=== PATIENT | female | born 1940 | race Caucasian/White ===

== ENCOUNTER → 2017-04-14 | Outpatient (CLI) | payer MEDICARE, OTHER ==
--- NOTE | 2017-04-14 14:07 | REPMRS ---
Patient History The patient states she has not had a clinical breast exam in over a year. Patient had first child at age 33. Family history of breast cancer in sister at age 45. Digital Woman Screen Mammo: April 14, 2017 - Exam #: [id number] Bilateral MLO and CC view(s) were taken. CV view(s) were taken of the right breast. Technologist: Shena Mauricio, Technologist Prior study comparison: April 12, 2016, digital woman screen mammo performed at [facility] to [facility]. March 06, 2015, right breast digital mammo diagnostic unilateral, performed at [facility]. February 20, 2015, digital woman screen mammo performed at [facility]. FINDINGS: There are scattered fibroglandular densities. There has been no change in the appearance of the mammogram from the prior studies. There is a mild amount of scattered fibroglandular density which is fairly symmetric. There is no interval development of dominant mass, architectural distortion, or clustered microcalcification suggestive of malignancy. ASSESSMENT: BI-RADS/ACR category 1 mammogram. Negative. Recommendation Routine screening mammogram in 1 year (for women over age 40). This mammogram was interpreted with the aid of an FDA-approved computer-aided dectection system. Electronically Signed By: Jose Campos MD 04/14/17 [id number]
== END ==
LOC: M WHC 12:57
PROVIDERS: ATTEND Family Medicine
DX: Z12.31 Encounter for screening mammogram for malignant neoplasm of breast (principal)

== ENCOUNTER → 2017-04-18 | Outpatient (REF) | payer MEDICARE, OTHER ==
[2017-04-18 12:12] LABS: ALBUMIN 3.6 GM/DL (3.2-5.2); ALKALINE PHOSPHATASE 215 U/L (45-117); ALT/SGPT 60 U/L (12-78); ANION GAP 9 MEQ/L (8-16); AST/SGOT 38 U/L (15-37); BILIRUBIN,TOTAL 0.2 MG/DL (0.2-1.0); BLOOD UREA NITROGEN 28 MG/DL (7-18); CALCIUM LEVEL 9.1 MG/DL (8.8-10.2); CARBON DIOXIDE LEVEL 28 MEQ/L (21-32); CHLORIDE LEVEL 100 MEQ/L (98-107); CHOLESTEROL LEVEL 239 MG/DL (<200); CREATININE FOR GFR 0.85 MG/DL (0.55-1.02); GLOMERULAR FILTRATION RATE > 60.0 (>39); GLUCOSE, FASTING 139 MG/DL (83-110); POTASSIUM SERUM 4.8 MEQ/L (3.5-5.1); SODIUM LEVEL 137 MEQ/L (136-145); TOTAL PROTEIN 7.2 GM/DL (6.4-8.2); TRIGLYCERIDES LEVEL 238 MG/DL (<150)
[2017-04-23 00:06] LABS: PHENOBARBITAL (PRIMIDONE) 14 ug/mL (15-40)
== END ==
LOC: M SFHCCLAY 08:35
PROVIDERS: ATTEND Family Medicine
DX: E11.9 Type 2 diabetes mellitus without complications (principal); I10 Essential (primary) hypertension; M10.9 Gout, unspecified; E78.2 Mixed hyperlipidemia

== ENCOUNTER → 2017-07-17 | Outpatient (REF) | payer MEDICARE, OTHER ==
[2017-07-17 16:46] LABS: ALBUMIN 3.4 GM/DL (3.2-5.2); ALBUMIN/GLOBULIN RATIO 0.94 (1.00-1.93); ALKALINE PHOSPHATASE 213 U/L (45-117); ALT/SGPT 63 U/L (12-78); ANION GAP 7 MEQ/L (8-16); AST/SGOT 42 U/L (15-37); BILIRUBIN,TOTAL 0.1 MG/DL (0.2-1.0); BLOOD UREA NITROGEN 23 MG/DL (7-18); CALCIUM LEVEL 8.8 MG/DL (8.8-10.2); CARBON DIOXIDE LEVEL 29 MEQ/L (21-32); CHLORIDE LEVEL 103 MEQ/L (98-107); CREATININE FOR GFR 0.78 MG/DL (0.55-1.02); GAMMA GLUTAMYLTRANSPEPTIDASE 274 U/L (5-55); GLOMERULAR FILTRATION RATE > 60.0 (>39); GLUCOSE, FASTING 86 MG/DL (83-110); POTASSIUM SERUM 4.4 MEQ/L (3.5-5.1); SODIUM LEVEL 139 MEQ/L (136-145)
== END ==
LOC: M SFHCCLAY 11:20
PROVIDERS: ATTEND Family Medicine
DX: E78.2 Mixed hyperlipidemia (principal); I10 Essential (primary) hypertension
CPT/HCPCS: 80053; 82977; G0463

== ENCOUNTER → 2018-04-16 | Outpatient (CLI) | payer MEDICARE, OTHER | LOC: M WHC 10:32 | DX: Z12.31 Encounter for screening mammogram for malignant neoplasm of breast (principal) | CPT/HCPCS: 77067 ==

== ENCOUNTER → 2019-04-14 | Outpatient (REF) | payer MEDICARE, OTHER ==
[2019-04-14 12:53] LABS: ALT/SGPT 36 U/L (12-78); BLOOD UREA NITROGEN 22 MG/DL (7-18); CALCIUM LEVEL 8.8 MG/DL (8.8-10.2); CARBON DIOXIDE LEVEL 28 MEQ/L (21-32); CHLORIDE LEVEL 103 MEQ/L (98-107); CHOLESTEROL LEVEL 184 MG/DL (<200); CHOLESTEROL RISK RATIO 2.453 (<5); CREATININE FOR GFR 0.86 MG/DL (0.55-1.30); GLOMERULAR FILTRATION RATE > 60.0 (>39); GLUCOSE, FASTING 120 MG/DL (70-100); HDL CHOLESTEROL 75 MG/DL (>40); LDL CHOLESTEROL 71 MG/DL (<100); NON-HDL-C 109 MG/DL; POTASSIUM SERUM 4.7 MEQ/L (3.5-5.1); SODIUM LEVEL 137 MEQ/L (136-145); TRIGLYCERIDES LEVEL 188 MG/DL (<150)
[2019-04-14 14:06] LABS: HEMOGLOBIN A1c 6.2 %
== END ==
LOC: M SFHCCLAY 08:54
PROVIDERS: ATTEND Family Medicine
DX: E11.9 Type 2 diabetes mellitus without complications (principal); I10 Essential (primary) hypertension

== ENCOUNTER 2019-05-27 13:57 | Emergency (ER) | payer MEDICARE, OTHER ==
[~2019-05-27] VITALS: Ht 154.9 cm; Wt 72.7 kg
[2019-05-27] MEDS ORDERED: POTA10808 PO (14:33)
[2019-05-27] MEDS ORDERED: ATOR80TA59 PO (14:33)
--- NOTE | 2019-05-27 14:34 | REP ---
Clinical: Trauma. Technique: AP, lateral, bilateral oblique views of the right foot. Findings: Age-related osteopenia and arthritic degenerative changes are appreciated. Mildly angulated fractures noted at the head of the second, third, and fourth metatarsal bones and possibly fifth metatarsal bone. No other fracture dislocation identified. Impression: Mildly angulated fractures involving the heads of the second through fifth metatarsal bones. Electronically Signed by Augustus Ellis MD 05/27/2019 02:25 P
[2019-05-27] MEDS ORDERED: PRIM250T8 PO (14:35)
--- NOTE | 2019-05-27 14:35 | REP ---
Clinical: Trauma. Technique: AP and lateral views of the right tibia / fibula. Findings: Age-related osteopenia and generalized degenerative changes at the knee and ankle joint noted. No obvious acute fracture or dislocation. Impression: No acute fracture or dislocation. Electronically Signed by Augustus Ellis MD 05/27/2019 02:26 P
[2019-05-27] MEDS ORDERED: ALLO10TA PO (14:38)
[2019-05-27] MEDS ORDERED: TRIH2TAB3 PO (14:38)
[2019-05-27] MEDS ORDERED: LISI10TA4 PO (14:38)
[2019-05-27] MEDS ORDERED: PIND10TA PO (14:39)
[2019-05-27] MEDS ORDERED: INDA125TA PO (14:39)
[2019-05-27] MEDS ORDERED: METF500T13 PO (14:41)
[2019-05-27] MEDS ORDERED: GLIP10TA PO (14:41)
[2019-05-27 14:46] LABS: BASO # 0.1 10^3/uL (0.0-0.2); BASO % 0.4 % (0.0-1.0); EOS # 0.4 10^3/uL (0.0-0.50); EOS % 3.2 % (0.0-3.0); HEMATOCRIT 35.7 % (36.0-47.0); HEMOGLOBIN 11.3 g/dl (12.0-15.5); LYMPH # 1.5 10^3/uL (1.5-4.5); LYMPH % 12.5 % (24.0-44.0); MEAN CORPUSCULAR HEMOGLOBIN 28.9 pg (27.0-33.0); MEAN CORPUSCULAR HGB CONC 31.7 g/dl (32.0-36.5); MEAN CORPUSCULAR VOLUME 91.3 fl (80.0-96.0); MONO # 0.7 10^3/uL (0.0-0.8); MONO % 5.8 % (0.0-5.0); NEUTROPHILS # 9.1 10^3/uL (1.8-7.7); NEUTROPHILS % 77.4 % (36.0-66.0); PLATELET COUNT, AUTOMATED 304 10^3/uL (150-450); RED BLOOD COUNT 3.91 10^6/uL (4.00-5.40); WHITE BLOOD COUNT 11.7 10^3/uL (4.0-10.0)
[2019-05-27 15:09] LABS: CALCIUM LEVEL 7.8 MG/DL (8.8-10.2); CREATININE FOR GFR 0.96 MG/DL (0.55-1.30); POTASSIUM SERUM 4.6 MEQ/L (3.5-5.1)
[2019-05-27] MEDS ORDERED: NORCO, ANEXSIA 5/325MG TABLET (HYDROcodone/ACETAMINOPHEN) PO ONE (15:30)
[2019-05-27] MEDS ORDERED: NS 1,000 ML IV ONE (15:30)
--- NOTE | 2019-05-27 15:56 | ECGEPIP ---
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
[2019-05-27] MEDS ORDERED: NORC1TAB7 PO ×2 (17:37→17:38)
[2019-05-27 18:15] VITALS: BP 122/57
[2019-05-27] MEDS ORDERED: WHEEMIS3 XX (18:29)
[2019-05-27] MEDS ORDERED: NORCO 5/325MG TABLET (BULK FOR ED) PO ONE (18:30)
[2019-05-27] MEDS ORDERED: ROLLMIS8 XX (18:30)
== END 2019-05-27 18:58 | disposition home or self-care (01) ==
LOC: EDBD 13:57 → M ED 13:57
DX: S92.321A Displaced fracture of second metatarsal bone, right foot, initial encounter for closed fracture (principal); S92.331A Displaced fracture of third metatarsal bone, right foot, initial encounter for closed fracture; S92.341A Displaced fracture of fourth metatarsal bone, right foot, initial encounter for closed fracture; S92.351A Displaced fracture of fifth metatarsal bone, right foot, initial encounter for closed fracture; W10.9XXA Fall (on) (from) unspecified stairs and steps, initial encounter; Y92.099 Unspecified place in other non-institutional residence as the place of occurrence of the external cause; Y93.01 Activity, walking, marching and hiking; Y99.9 Unspecified external cause status; E11.9 Type 2 diabetes mellitus without complications; I10 Essential (primary) hypertension; Z87.891 Personal history of nicotine dependence; Z82.49 Family history of ischemic heart disease and other diseases of the circulatory system; Z83.3 Family history of diabetes mellitus; Z82.3 Family history of stroke; Z79.84 Long term (current) use of oral hypoglycemic drugs; Z79.899 Other long term (current) drug therapy; Z99.89 Dependence on other enabling machines and devices

== ENCOUNTER → 2020-04-21 | Outpatient (REF) | payer MEDICARE, OTHER ==
[~2020-04-21] MED LIST: ALLO10TA PO; ATOR80TA59 PO; GLIP10TA PO; INDA125TA PO; LISI10TA4 PO; METF500T13 PO; NORC1TAB7 PO; PIND10TA PO; POTA10808 PO; PRIM250T8 PO; ROLLMIS8 XX; TRIH2TAB3 PO; WHEEMIS3 XX
[2020-04-21 13:33] LABS: ALBUMIN 3.2 GM/DL (3.2-5.2); BILIRUBIN,TOTAL 0.1 MG/DL (0.2-1.0); CALCIUM LEVEL 8.8 MG/DL (8.8-10.2); CHOLESTEROL RISK RATIO 2.182 (<5); CREATININE FOR GFR 1.16 MG/DL (0.55-1.30); GLOMERULAR FILTRATION RATE 48.1 (>39); POTASSIUM SERUM 4.9 MEQ/L (3.5-5.1); TOTAL PROTEIN 7.1 GM/DL (6.4-8.2)
[2020-04-21 14:01] LABS: MALB URINE SIEMENS 51.6 MG/L; MAU/CREAT RATIO 17.2 MCG/MG (0.0-30.0)
== END ==
LOC: M SFHCCLAY 08:34
PROVIDERS: ATTEND Family Medicine
DX: I10 Essential (primary) hypertension (principal); E11.9 Type 2 diabetes mellitus without complications

== ENCOUNTER → 2020-09-27 | Outpatient (REF) | payer MEDICARE, OTHER ==
[2020-09-27 19:52] LABS: ALBUMIN 3.6 GM/DL (3.2-5.2); ALT/SGPT 36 U/L (12-78); BILIRUBIN,TOTAL 0.1 MG/DL (0.2-1.0); BLOOD UREA NITROGEN 27 MG/DL (7-18); CALCIUM LEVEL 9.1 MG/DL (8.8-10.2); CARBON DIOXIDE LEVEL 27 MEQ/L (21-32); CHLORIDE LEVEL 105 MEQ/L (98-107); CREATININE FOR GFR 0.86 MG/DL (0.55-1.30); GLOMERULAR FILTRATION RATE > 60.0 (>39); GLUCOSE, FASTING 67 MG/DL (70-100); POTASSIUM SERUM 4.9 MEQ/L (3.5-5.1); SODIUM LEVEL 137 MEQ/L (136-145); TOTAL PROTEIN 7.1 GM/DL (6.4-8.2)
[2020-09-27 21:23] LABS: HEMOGLOBIN A1c 5.9 %
== END ==
LOC: M SFHCCLAY 12:36
PROVIDERS: ATTEND Family Medicine
DX: E78.2 Mixed hyperlipidemia (principal); E11.9 Type 2 diabetes mellitus without complications; R74.01 Elevation of levels of liver transaminase levels
CPT/HCPCS: 80053; 83036; G0463

== ENCOUNTER → 2020-10-27 | Outpatient (REF) | payer MEDICARE, OTHER ==
[2020-10-27 12:22] LABS: TOTAL PROTEIN 6.9 GM/DL (6.4-8.2)
[2020-10-27 12:31] LABS: PTH INTACT 112.7 PG/ML (18.5-88.0); TOTAL 25(OH) VITAMIN D 8.2 NG/ML (30.0-100.0)
[2020-10-30 02:09] LABS: Alkaline Phosphatase Iso-Bone 58 % (14-68); Alkaline Phosphatase Iso-Intes 9 % (0-18); Alkaline Phosphatase Iso-Liver 33 % (18-85); TOTAL ALK PHOS 255 IU/L (39-117)
[2020-10-30 14:36] LABS: ALBUMIN 3.64 GM/DL (3.29-5.55); ALBUMIN % 52.7 % (55.8-66.1); ALPHA-1-GLOBULIN % 5.1 % (2.9-4.9); ALPHA-1-GLOBULINS 0.35 GM/DL (0.17-0.41); ALPHA-2-GLOBULINS 0.94 GM/DL (0.42-0.99); ALPHA-2-GLOBULINS % 13.6 % (7.1-11.8); BETA-1-GLOBULINS % 7.3 % (4.7-7.2); BETA-2-GLOBULINS 0.52 GM/DL (0.19-0.55); BETA-2-GLOBULINS % 7.5 % (3.2-6.5); GAMMA GLOBULIN % 13.8 % (11.1-18.8); GAMMA GLOBULINS 0.95 GM/DL (0.65-1.58)
== END ==
LOC: M SFHCCLAY 08:54
PROVIDERS: ATTEND Family Medicine
DX: R74.8 Abnormal levels of other serum enzymes (principal); D89.2 Hypergammaglobulinemia, unspecified

== ENCOUNTER → 2021-03-27 | Outpatient (REF) | payer MEDICARE, OTHER ==
[~2021-03-27] MED LIST changes: +LISI10TA22 PO; -LISI10TA4 PO
[2021-03-27 18:15] LABS: CALCIUM LEVEL 9.2 MG/DL (8.8-10.2); GLOMERULAR FILTRATION RATE 56.9 (>39); POTASSIUM SERUM 5.5 MEQ/L (3.5-5.1); PTH INTACT 85.7 PG/ML (18.5-88.0); TOTAL 25(OH) VITAMIN D 30.6 NG/ML (30.0-100.0)
[2021-03-27 19:18] LABS: HEMOGLOBIN A1c 5.6 %
== END ==
LOC: M SFHCCLAY 10:44
PROVIDERS: ATTEND Family Medicine
DX: E55.9 Vitamin D deficiency, unspecified (principal); E11.9 Type 2 diabetes mellitus without complications; E21.3 Hyperparathyroidism, unspecified
CPT/HCPCS: 80048; 82306; 83036; 83970; G0463

== ENCOUNTER → 2021-03-28 | Outpatient (REF) | payer MEDICARE, OTHER ==
[2021-03-28 12:27] LABS: BLOOD UREA NITROGEN 29 MG/DL (7-18); CALCIUM LEVEL 8.6 MG/DL (8.8-10.2); CARBON DIOXIDE LEVEL 29 MEQ/L (21-32); CHLORIDE LEVEL 105 MEQ/L (98-107); CREATININE FOR GFR 0.91 MG/DL (0.55-1.30); GLOMERULAR FILTRATION RATE > 60.0 (>39); GLUCOSE, FASTING 114 MG/DL (70-100); POTASSIUM SERUM 5.8 MEQ/L (3.5-5.1); SODIUM LEVEL 138 MEQ/L (136-145)
== END ==
LOC: M SFHCCLAY 09:01
PROVIDERS: ATTEND Family Medicine
DX: E55.9 Vitamin D deficiency, unspecified (principal); E21.3 Hyperparathyroidism, unspecified; E87.5 Hyperkalemia

== ENCOUNTER → 2021-07-07 | Outpatient (CLI) | payer MEDICARE, OTHER | LOC: M LABSMTC 10:18 | PROVIDERS: ATTEND Anesthesiology | DX: Z01.812 Encounter for preprocedural laboratory examination (principal); Z20.822 Contact with and (suspected) exposure to COVID-19 ==

== ENCOUNTER → 2021-07-09 | Outpatient (CLI) | payer MEDICARE, OTHER ==
--- NOTE | 2021-07-09 13:59 | REP ---
INDICATION: ESSENTIAL HYPERTENSION. COMPARISON: None. TECHNIQUE: PA and lateral FINDINGS: The superior mediastinal structures are midline. The cardiac silhouette is unremarkable in size, shape, and position. The diaphragmatic surfaces of the lungs are regular, and the costophrenic angles are clear. The pulmonary gonzalez are clear. The imaged osseous structures are intact. IMPRESSION: There is no acute cardiopulmonary disease. <Electronically signed by Semaj Anglin > 07/09/21 [id number]
== END ==
LOC: M CLY 13:29
PROVIDERS: ATTEND Family Medicine
DX: I10 Essential (primary) hypertension (principal)

== ENCOUNTER 2021-07-12 07:03 | Day surgery (SDC) | payer MEDICARE, OTHER ==
[~2021-07-12] VITALS: Ht 152.4 cm; Wt 74.6 kg
[~2021-07-12 07:03] MED LIST changes: +ACETAMINOPHEN 325 MG TAB PO PRN; +BALANCED SALT IRRIGATION SOLUTION 500ML BAG (FOR OR EYE MACHINE) As Ordered ONE; +LIDOCAINE 1% SDV 5ML VIAL As Ordered ONE; +LR 1,000 ML IV SCH; +POVIDONE-IODINE 5% OPHTH PREP SOL 30ML As Ordered ONE
[2021-07-12] MEDS ORDERED: MIDAZOLAM INJ 2MG/2ML VIAL (J2250 PER 1MG) As Ordered ONE (07:38)
[2021-07-12] MEDS ORDERED: fentaNYL 100 MCG/2 ML INJECTION (J3010) As Ordered ONE (07:38)
[2021-07-12] MEDS: TETRACAINE 0.5% OPHTH SOLN 4ML OD SCH ×2 (08:21→09:58)
[2021-07-12] MEDS: CYCLOPENTOLATE 1% OPHTH SOLN 2 ML BTL OD SCH ×3 (08:26→08:46)
[2021-07-12] MEDS: PHENYLEPHRINE 2.5% OPHTH SOL 2ML OD SCH ×3 (08:26→08:46)
[2021-07-12] MEDS: FLURBIPROFEN 0.03% OPHTH SOLN 2.5 ML OD SCH ×3 (08:26→08:46)
[2021-07-12] MEDS ORDERED: MAXITROL OPHTH SUSP 5 ML As Ordered ONE (09:25)
[2021-07-12 10:30] VITALS: BP 134/64
[2021-07-12] MEDS ORDERED: TRIMETHOBENZAMIDE 300 MG CAP PO PRN (10:50)
[2021-07-12] MEDS ORDERED: ONDANSETRON 4MG/2ML VIAL IV PRN (10:55)
[2021-07-12] MEDS ORDERED: fentaNYL 100 MCG/2 ML INJECTION (J3010) IV PRN (10:55)
[2021-07-12] MEDS ORDERED: LR 1,000 ML IV SCH (10:55)
--- NOTE | 2021-07-12 14:48 | ROOPDOC ---
[facility] Report Of Operation Report of Operation DATE OF PROCEDURE: 07/12/21 PREPROCEDURE DIAGNOSES: Cataract right eye. POSTPROCEDURE DIAGNOSES: Same. PROCEDURE PERFORMED: Cataract extraction with intraocular lens implantation right eye. SURGEON: Goran Cristobal MD INVESTIGATIVE AGENT: None ANESTHESIA: Local with intravenous sedation. ESTIMATED BLOOD LOSS: None . COMPLICATIONS: None. SPECIMENS REMOVED: None DESCRIPTION OF PROCEDURE: The patient was brought to the operating room and prepped and draped in the usual sterile fashion and eyelid speculum was inserted in the right eye. A paracentesis was made and the anterior chamber was inflated with non-preserved lidocaine. The anterior chamber was inflated with Viscoat. A groove was made in the temporal clear cornea and the anterior chamber was entered with a 2.75 keratome. The cystotome was used to make an incision in the center of the capsule and a continuous curvilinear capsulorhexis was created. The lens was hydrodissected until it was found to rotate freely within the capsular bag. Phacoemulsification was then used to remove the lens in its entirety. Irrigation and aspiration were used to remove residual cortical material. The anterior chamber and capsular bag were reinflated with Provisc and a 15.0 diopter SN60AT lens was injected into the capsular bag using the [place] injector. The lens was dialed into place using the [place] hook. Irrigation and aspiration were used to remove residual viscoelastic. The wound was stromally hydrated until was found to be watertight and the eye was in an appropriate pressure. The eyelid speculum was removed from the eye and Maxitrol drops were placed over the right eye. The patient was transferred to the recovery room in stable condition and will follow up tomorrow. GORAN CRISTOBAL MD Jul 12, 2021 14:48
== END 2021-07-12 10:40 | disposition home or self-care (01) ==
LOC: M SDC 07:03
PROVIDERS: ATTEND Ophthalmology
DX: H25.11 Age-related nuclear cataract, right eye (principal); I10 Essential (primary) hypertension; E78.00 Pure hypercholesterolemia, unspecified; E11.9 Type 2 diabetes mellitus without complications; Z79.84 Long term (current) use of oral hypoglycemic drugs; Z79.899 Other long term (current) drug therapy; Z87.891 Personal history of nicotine dependence
CPT/HCPCS: 66984; J2250; J3010; V2632

== ENCOUNTER → 2021-09-15 | Outpatient (CLI) | payer MEDICARE, OTHER ==
[~2021-09-15] MED LIST changes: -ACETAMINOPHEN 325 MG TAB PO PRN; -BALANCED SALT IRRIGATION SOLUTION 500ML BAG (FOR OR EYE MACHINE) As Ordered ONE; -LIDOCAINE 1% SDV 5ML VIAL As Ordered ONE; -LR 1,000 ML IV SCH; -POVIDONE-IODINE 5% OPHTH PREP SOL 30ML As Ordered ONE
== END ==
LOC: M LABSMTC 10:32
PROVIDERS: ATTEND Anesthesiology
DX: Z20.828 Contact with and (suspected) exposure to other viral communicable diseases (principal); Z11.52 Encounter for screening for COVID-19

== ENCOUNTER 2021-09-20 09:21 | Day surgery (SDC) | payer MEDICARE, OTHER ==
[~2021-09-20] VITALS: Ht 152.4 cm; Wt 75.9 kg
[~2021-09-20 09:21] MED LIST changes: +DUOVISC (0.50ML VISCOAT/0.85ML PROVISC) OPHTH KIT As Ordered ONE; +LIDOCAINE 1% SDV 5ML VIAL As Ordered ONE; +LR 1,000 ML IV SCH; +MAXITROL OPHTH SUSP 5 ML As Ordered ONE; +MIDAZOLAM INJ 2MG/2ML VIAL (J2250 PER 1MG) As Ordered ONE; +fentaNYL 100 MCG/2 ML INJECTION (J3010) As Ordered ONE
--- OUTSIDE RECORDS SUMMARY | 2021-09-20 09:26 | CCD ---
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 02/15/2016 - 12:00AM Freddie Langston MD, FACS Active Note: of both eyes History of Nicotine Dependence 02/15/2016 - 12:00AM Freddie Langston MD, FACS Inactive Note: Unchanged Essential Hypertension 02/15/2016 - 12:00AM Freddie Paredes MD, FACS Active Vitreous degeneration, bilateral 02/15/2016 - 12:00AM Freddie Langston MD, FACS Active Conjunctivitis Chronic Allergic 05/12/2015 - 12:00AM Freddie Langston MD, FACS Active Note: Unchanged Pinguecula Bilateral 05/12/2015 - 12:00AM Freddie Mcdonald MD, FACS Active Note: Unchanged Presbyopia 05/12/2015 - 12:00AM Freddie Langston MD, FACS Active Note: Unchanged Cataract Senile Cortical 09/05/2014 - 12:00AM Freddie Langston MD, FACS Active Note: Unchanged - of both ey es Pinguecula 09/05/2014 - 12:00AM Freddie Langston MD, FACS Inactive Note: Unchanged Cataract Senile Cortical Anterior 03/11/2014 - 12:00AM Freddie Langston MD, FACS Inactive Note: Unchanged Dermatochalasis Both Eyelids 03/11/2014 - 12:00AM Freddie Langston MD, FACS Inactive Note: Unchanged Diabetes Mellitus Secondary with Ophthalmic Manifestations 0 03/11/2014 - 12:00AM Freddie Langston MD, FACS Inactive Note: Unchanged Diabetes with Diabetic Retinopathy Nonproliferative Mi ld Both Eyes 03/11/2014 - 12:00AM Freddie Langston MD, FACS Inactive Note: Unchanged Retinopathy Hypertensive Both Eyes 03/11/2014 - 12:00AM Freddie Langston MD, FACS Active Note: Unchanged Cataract Senile Nuclear 03/11/2014 - 12:00AM Freddie Langston MD, FACS Active Note: Unchanged - of both ey es Dry Eye Syndrome Both Eyes 03/11/2014 - 12:00AM Freddie Langston MD, FACS Active Note: Unchanged Vitreous Floaters Both Eyes 03/11/2014 - 12:00AM Freddie Langston MD, FACS Inactive Note: Unchanged Plan of Treatment Future Appointments Date Time Location Provider 1 Day Post OP 09/21/2021 8:15AM Freddie Langston MD [facility] Assessments Includes: Assessments for all patient encounters Findings Encounter Date Bilateral cortical senile cataract 6 Month Follow-Up w ith Freddie Langston MD, FACS 05/23/2021 Essential hypertension 6 Month Follow-Up with Freddie Comer MD, FACS 05/23/2021 History of nicotine dependence 6 Month Follow-Up with Freddie Langston MD, FACS 05/23/2021 Hypertensive retinopathy of both eyes 6 Month Follow-U p with Freddie Langston MD, FACS 05/23/2021 Long-term use of oral hypoglycemics 6 Month Follow-Up with Freddie Langston MD, FACS 05/23/2021 Nuclear senile cataract 6 Month Follow-Up with Freddie Sinclair MD, FACS 05/23/2021 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 edema 6 Month Follow-Up with Freddie Langston MD, FACS Bilateral cortical senile cataract 1 Year Follow-Up wi Freddie Langston MD, FACS 09/29/2020 Essential hypertension 1 Year Follow-Up with Freddie Joaquin MD, FACS 09/29/2020 History of nicotine dependence 1 Year Follow-Up with Froy Langston MD, FACS 09/29/2020 Hypertensive retinopathy of both eyes 1 Year Follow-Up with Freddie Langston MD, FACS 09/29/2020 Long-term use of oral hypoglycemics 1 Year Follow-Up w ith Freddie Langston MD, FACS 09/29/2020 Nuclear senile cataract 1 Year Follow-Up with Freddie Comer MD, FACS 09/29/2020 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 edema 1 Year Follow-Up with Freddie Langston MD, FACS 04/2020 Bilateral cortical senile cataract 1 Year Follow-Up wi Freddie Langston MD, FACS 09/15/2019 Essential hypertension 1 Year Follow-Up with Freddie Joaquin MD, FACS 09/15/2019 History of nicotine dependence 1 Year Follow-Up with Froy Langston MD, FACS 09/15/2019 Hypertensive retinopathy of both eyes 1 Year Follow-Up with Freddie Langston MD, FACS 09/15/2019 Long-term use of oral hypoglycemics 1 Year [facility]ston MD, FACS 09/15/2019 Nuclear senile cataract 1 Year Follow-Up with Freddie Comer MD, FACS 09/15/2019 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 edema 1 Year Follow-Up with Freddie Langston MD, FACS Cortical senile cataract 1 Year Follow-Up with Freddie Sinclair MD, FACS 09/02/2018 Essential hypertension 1 Year Follow-Up with Freddie Joaquin MD, FACS 09/02/2018 Hypertensive retinopathy of both eyes 1 Year Follow-Up with Freddei Langston MD, FACS 09/02/2018 Long-term use of oral hypoglycemics 1 Year Follow-Up w ith Freddie Langston MD, FACS 09/02/2018 Nuclear senile cataract 1 Year Follow-Up with Freddie Comer MD, FACS 09/02/2018 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 edema 1 Year Follow-Up with Freddie Langston MD, FACS 08/2018 Bilateral cortical senile cataract 5 Month Follow-Up w ith Freddie Langston MD, FACS 08/20/2017 Essential hypertension 5 Month Follow-Up with Ferddie Comer MD, FACS 08/20/2017 History of nicotine dependence 5 Month Follow-Up with Freddie Langston MD, FACS 08/20/2017 Hypertensive retinopathy of both eyes 5 Month Follow-U p with Freddie Langston MD, FACS 08/20/2017 Long-term use of oral hypoglycemics 5 Month Follow-Up with Freddie Langston MD, FACS 08/20/2017 Nuclear senile cataract 5 Month Follow-Up with Freddie Sinclair MD, FACS 08/20/2017 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 edema 5 Month Follow-Up with Freddie Langston MD, FACS Bilateral cortical senile cataract 3 Month Follow-Up w ith Freddie Langston MD, FACS 01/22/2017 Nuclear senile cataract 3 Month Follow-Up with Freddie Sinclair MD, FACS 01/22/2017 Bilateral cortical senile cataract 9 Month Follow-Up w ith Freddie Langston MD, FACS 10/29/2016 Essential hypertension 9 Month Follow-Up with Freddie Comer MD, FACS 10/29/2016 History of nicotine dependence 9 Month Follow-Up with Freddie Langston MD, FACS 10/29/2016 Hypertensive retinopathy of both eyes 9 Month Follow-U p with Freddie Langston MD, FACS 10/29/2016 Long-term use of oral hypoglycemics 9 Month Follow-Up with Freddie Langston MD, FACS 10/29/2016 Nuclear senile cataract 9 Month Follow-Up with Freddie Sinclair MD, FACS 10/29/2016 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 edema 9 Month Follow-Up with Freddie Langston MD, FACS Cortical senile cataract 9 Month Follow-Up with Freddie Mcdonald MD, FACS 02/15/2016 Essential hypertension 9 Month Follow-Up with Freddie Comer MD, FACS 02/15/2016 Hypertensive retinopathy of both eyes 9 Month Follow-U p with Freddie Langston MD, FACS 02/15/2016 Long-term use of oral hypoglycemics 9 Month Follow-Up with Freddie Langston MD, FACS 02/15/2016 Nuclear senile cataract 9 Month Follow-Up with Freddie Sinclair MD, FACS 02/15/2016 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 edema of both eyes 9 Month Follow-Up with Freddie Langston MD, FACS 02/15/2016 Bilateral pinguecula 9 Month Follow-Up with Freddie schmitz MD, FACS 05/12/2015 Chronic allergic conjunctivitis of both eyes 9 Month Follow-Up with Freddie Langston MD, FACS 05/12/2015 Cortical senile cataract of both eyes 9 Month Follow- Up with Freddie Joaquin MD, FACS 05/12/2015 Dermatochalasis of both eyes 9 Month Follow-Up with Ryan Langston MD, FACS 05/12/2015 Diabetes with mild nonproliferative diabetic retinopat hy of both eyes 9 Month Follow-Up with Freddie Langston MD, FACS 05/12/2015 Dry eye syndrome of both eyes 9 Month Follow-Up with Froy Langston MD, FACS 05/12/2015 Hypertensive retinopathy of both eyes 9 Month Follow-U p with Freddie Langston MD, FACS 05/12/2015 Nuclear senile cataract of both eyes 9 Month Follow-U p with Freddie Langston MD, FACS 05/12/2015 Presbyopia 9 Month Follow-Up with Freddie hernandez MD, FACS 05/12/2015 Secondary diabetes mellitus with ophthalmic manifestat ions 9 Month Follow-Up with Freddie Langston MD, FACS 05/12/2015 Vitreous floaters in both eyes 9 Month Follow-Up with Freddie Langston MD, FACS 05/12/2015 Cortical senile cataract both eyes 6 Month Follow-Up with Freddie Langston MD, FACS 09/05/2014 Dermatochalasis of both eyes upper and lower 6 Month Follow-Up with Freddie Langston MD, FACS 09/05/2014 Dry eye syndrome of both eyes 6 Month Follow-Up with Froy Langston MD, FACS 09/05/2014 Hypertensive retinopathy of both eyes 6 Month Follow-U p with Freddie Langston MD, FACS 09/05/2014 Mild nonproliferative diabetic retinopathy of both eye s 6 Month Follow-Up with Freddie Langston MD, FACS 09/05/2014 No diabetic macular edema 6 Month Follow-Up with Freddie Sanders MD, FACS 09/05/2014 No rubeosis iridis 6 Month Follow-Up with Freddie hernandez MD, FACS 09/05/2014 Nuclear senile cataract both eyes 6 Month Follow-Up w ith Freddie Langston MD, FACS 09/05/2014 Pinguecula both eyes 6 Month Follow-Up with Freddie Joaquin MD, FACS 09/05/2014 Secondary diabetes mellitus with ophthalmic manifestat ions 6 Month Follow-Up with Freddie Langston MD, FACS 09/05/2014 Vitreous floaters in both eyes 6 Month Follow-Up with Freddie Langston MD, FACS 09/05/2014 Anterior cortical senile cataract of both eyes NEW PA TIENT WITH REFERRAL with Freddie Langston MD, FACS 03/11/2014 Dermatochalasis of both eyes NEW PATIENT WITH REFERRAL with Freddie Langston MD, FACS 03/11/2014 Dry eye syndrome of both eyes NEW PATIENT WITH REFERRA L with Freddie Langston MD, FACS 03/11/2014 Hypertensive retinopathy of both eyes NEW PATIENT WITH REFERRAL with Freddie Langston MD, FACS 03/11/2014 Mild nonproliferative diabetic retinopathy of both eye s NEW PATIENT WITH REFERRAL with Freddie Langston MD, FACS 03/11/2014 No diabetic macular edema NEW PATIENT WITH REFERRAL wi Freddie Langston MD, FACS 03/11/2014 No rubeosis iridis of both eyes NEW PATIENT WITH REFER RAL with Freddie Joaquin MD, FACS 03/11/2014 Nuclear senile cataract of both eyes NEW PATIENT WITH REFERRAL with Freddie Langston MD, FACS 03/11/2014 Secondary diabetes mellitus with ophthalmic manifestat ions NEW PATIENT WITH REFERRAL with Freddie Langston MD, FACS 03/11/2014 Vitreous floaters in both eyes NEW PATIENT WITH REFERR AL with Freddie Joaquin MD, FACS 03/11/2014 Instructions Instructions not supported for this document typeNo Instructions Recorded Medical Equipment - Implanted Devices Includes: Current and historical DevicesNo Medical Equipment Recorded Medications Includes: Current and historical Medications Current Medications (continue as prescribed) Primidone 50MG Oral Tablet 08/20/2017 Provider: Diagnosis: 4 tabs twice a day Indapamide 1.25 MG OR TABS 03/11/2014 Provider: Diagnosis: Allopurinol 300 MG OR TABS 03/11/2014 Provider: Diagnosis: Pindolol 10 MG OR TABS 03/11/2014 Provider: Diagnosis: metFORMIN HCl 500 MG TABS 03/11/2014 Provider: Diagnosis: Trihexyphenidyl HCl 2 MG OR TABS 03/11/2014 Provide r: Diagnosis: Atorvastatin Calcium 80 MG OR TABS 03/11/2014 Provi favio: Diagnosis: glipiZIDE XL 5 MG OR TB24 03/11/2014 Provider: Diagnosis: 1 in AM 1/2 in PM BeQuan 2 w/Device KIT 03/11/2014 Provider: Diagnosis: Potassium Citrate ER 10 MEQ (1080 MG) OR TBCR 03/11/2014 Provider: Diagnosis: Lisinopril 10 MG OR TABS 03/11/2014 Provider: Diagnosis: Past Medications on file Primidone 50MG Oral Tablet 08/20/2017 - 08/20/2017 Provider: Diagnosis: 4 tabs 3 times a day Primidone 50 MG OR TABS 03/11/2014 - 08/20/2017 Provider: Diagnosis: 3 tabs twice a day Medications Administered Includes: Administered Medications in patient's chartNo Administered Medications Recorded Vital Signs Includes: Vital Signs from 08/20/2020 through 08/20/2021No Vital Signs Recorded For Specified Dates Results Includes: Results from 08/20/2020 through 08/20/2021No Results Recorded For Specified Dates History of Present Illness History of Present Illness not supported for this document typeNo History of Present Illness Recorded Social History Description Last Updated Previous smoking history 05/23/2021 Tobacco non-user 05/23/2021 Alcohol use was two drinks/day 09/29/2020 No tobacco use 09/29/2020 Not using drugs 09/29/2020 Smoking status : Former smoker 09/29/2020 Alcohol - 2 per day 03/11/2014 Procedures and Surgical History Includes: Procedures from 08/20/2020 through 08/20/2021 Procedures Code Diagnosis Performing Provider Service Location Service Date Intermediate Eye Exam Established Patient [id number] Type 2 diab with mild nonp rtnop without macular edema, bi, 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 Gomez FBS: has not checked recently 05/23/2021 History of the retina was abnormal 09/15/2019 09/29/20 History of fundoscopic exam through dilated pupils was performed 09/02/2018 09/15/2019 History of essential hypertension 02/15/2016 No recent change in medical history 09/05/2014 Reported medical history : GOUT, Kidney Stones, Essent ial tremor 09/05/2014 Currently wearing eyeglasses 03/11/2014 Wearing contact lenses 03/11/2014 History of hyperlipidemia 03/11/2014 History of hypertension 03/11/2014 Family History Includes: Family History in patient's chart Description Last Updated Fraternal history of family history of cancer 09/15/20 19 Fraternal history of heart disease 09/15/2019 Fraternal history of hypertension 09/15/2019 Maternal history of hypertension 09/15/2019 Paternal history of arthritis 09/15/2019 Paternal history of diabetes mellitus 09/15/2019 Paternal history of heart disease 09/15/2019 Fraternal history of diabetes mellitus 02/15/2016 Maternal history of arthritis 02/15/2016 Maternal history of family history of cancer 6 Maternal history of stroke/cerebrovascular accident Paternal history of hypertension 02/15/2016 Sororal history of arthritis 02/15/2016 Sororal history of family history of cancer 02/15/2016 Review of Systems Review of Systems not supported for this document typeNo Review of Systems Recorded Mental Status Mental Status not supported for this document typeNo Mental Status Recorded Functional Status Functional Status not supported for this document typeNo Functional Status Recorded Physical Exam Physical Exam not supported for this document typeNo Physical Exam Recorded Immunizations Includes: Immunizations in patient's chartNo Immunizations Recorded Allergies Includes: Active, inactive, and resolved AllergiesNo Known Allergies Encounters Includes: Encounters from 08/20/2020 through 08/20/2021 Encounter Provider Location Date Check-In Time Check-Out Time D iagnosis 3 - 4 Week Follow-Up Freddie Langston MD [facility] 08/17/2021 11: 50AM 12:48PM 1 Month Follow-Up Freddie Langston MD [facility] 07/27/2021 7:11AM 8:44AM TRIAGE NON URGENT Freddie Langston MD [facility] 07/20/2021 12:28P M 1:37PM 1 Day Post OP Freddie Langston MD [facility] 07/17/2021 8:00AM 9:49AM 1 Day Post OP Freddie Langston MD [facility] 07/13/2021 11:53AM 12:23PM Extracapsular cataract removal w/IOL implant Tramaine jen Langston MD [facility] 07/12/2021 10:01AM 10:01AM Cataract Evaluation Freddie Langston MD [facility] 05/31/2021 12:3 2PM 2:28PM 6 Month Follow-Up Freddie Langston MD, FACS Freddie Langston MD [facility] 05/23/2021 2:04PM 3:56PM History of Nicotine Dependence, Essential Hypertension, Cataract Senile Nuclear, Taking Medication For Diabetes Long-term Use of Oral Hypoglycemics, Retinopathy Hypertensive Both Eyes, 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, Cataract Senile Cortical Bilateral 1 Year Follow-Up Freddie Langston MD, FACS Freddie Mcduffie [facility] 09/29/2020 1:17PM 2:33PM History of Nicotine Dependence, Essential Hypertension, Cataract Senile Nuclear, Taking Medication For Diabetes Long-term Use of Oral Hypoglycemics, Retinopathy Hypertensive Both Eyes, 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, Cataract Senile Cortical Bilateral Insurance Includes: Active Insurance Policies Plan Name Member ID Group # Subscriber Relationship Effective Da claudio 1 - Medicare Part B [facility] ([facility]) [id number] Dahiana Augustine nickisaias Self 2 - [employer] /PRIOR AUTHS NEEDED [id number] Nettie Boyle Self Advance Directives Includes: Current Advance DirectivesNo Advance Directives Recorded Health Concerns Includes: Active Health ConcernsNo Active Health Concerns Recorded Goals Includes: Active GoalsNo Active Goals Recorded Interventions Includes: Interventions for active GoalsNo Interventions Recorded Evaluations & Outcomes Includes: Evaluations & Outcomes for active GoalsNo Outcomes Recorded
--- OUTSIDE RECORDS SUMMARY | 2021-09-20 09:26 | CCD ---
Author Author [facility] Organization [facility] Address Unknown Phone Unavailable Care Team Providers Care Project Planner Name Role Phone Morris Gomez Unavailable PROBLEMS Type Condition ICD9-CM Code LCD14-CN Code Onset Dates Condition S tatus W/U Status Risk SNOMED Code Notes Problem Essential hypertension I10 Active confirmed 21508878 Problem Aortic sclerosis I70.0 Active confirmed 677 39204 Problem Cellulitis L03.90 Active confirmed 379478655 Problem Diabetes mellitus E11.9 Active confirmed 73 790853 Problem Mixed hyperlipidemia E78.2 Active confirmed 615730045 Problem Gout M10.9 Active confirmed 74059617 Problem Essential tremor G25.0 Active confirmed 609 535099 Problem Breast screening Z12.31 Active confirmed 305 392750 Problem Primary osteoarthritis of left hip M16.12 Activ e confirmed 061685202795563 Problem Nephrolithiasis N20.0 Active confirmed 9557 0007 Problem Primary osteoarthritis of right knee M17.11 Act chaparro confirmed [id number] Problem Cataract of right eye, unspecified cataract type H 26.9 Active confirmed 289988883 Problem Primary osteoarthritis of left knee M17.12 Acti ve confirmed 816577377105121 Problem Primary osteoarthritis of both knees M17.0 Act chaparro confirmed 654373897 Problem Other chronic pain G89.29 Active confirmed 8 1331782 Problem 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 Active confirmed 137945417 Problem Hypovitaminosis D E55.9 Active confirmed 34 738821 Problem Hyperparathyroidism E21.3 Active confirmed 67271685 Problem 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 Active confirm ed 09700083 ALLERGIES No Known Allergies ENCOUNTERS from 1940 to 2021-08-16 Encounter Location Date Provider Diagnosis [facility] Jordy DE LA O [phone] [place] [address] 22 Jul, 2021 Morris Gomez Diabetes mellitus E11.9 ; Essential trem or G25.0 ; Mixed hyperlipidemia E78.2 ; Gout M10.9 ; Essential hypertension I10 ; Pre-op exam Z01.818 and Primary osteoarthritis of both knees M17.0 IMMUNIZATIONS Vaccine Route Administration Date Status COVID-19 dose #1 given elsewhere Unspecified Unknown Dec 19, 2020 Administered COVID-19 dose #2 given elsewhere Unspecified Unknown March 29, 2021 Administered Influenza 18 yrs & older Flublok IM Intramuscular Nov 03, 2018 Administered Influenza 18 yrs & older Flublok IM Intramuscular Sep 02, 2019 Administered Influenza (High Dose 65 & up) IM Intramuscular Oct 11, 2016 A dministered Influenza (High Dose 65 & up) IM Intramuscular Sep 05, 2017 A dministered Influenza Pharmacy Given Unknown Sep 17, 2020 Adminis tered Influenza 6mo & up Fluzone IM Intramuscular Aug 29, 2010 Admi nistered Influenza (High Dose 65 & up) IM Intramuscular Nov 23, 2015 A dministered Pneumococcal Adult 0.5mL Pneumovax 23 IM Intramuscular February 02, 2014 Administered TDAP 0.5mL (Boostrix) IM Intramuscular Dec 04, 2017 Administe red Pneumococcal 0.5mL Prevnar 13 IM Intramuscular June 07, 2015 A dministered Influenza 6mo & up Fluzone IM Intramuscular Sep 27, 2014 Admi nistered Influenza 6mo & up Fluzone IM Intramuscular Sep 28, 2013 Admi nistered Influenza 6mo & up Fluzone IM Sep 03, 2012 Admin istered Influenza 6mo & up Fluzone IM Intramuscular Aug 09, 2011 Admi nistered SOCIAL HISTORY Tobacco Use: Social History Observation Description Date Details (start date - stop date) Former Smoker Sex Assigned At : Social History Observation Description Sex Assigned At Unknown Education: Question Answer Notes Level of Education: College Audit Question Answer Notes Total Score: 2 Interpretation: Alcohol Education Moravian: Question Answer Notes Moravian No mandaen beliefs that would impact health care. Sexual Hx: Question Answer Notes Had sex in the last 12 months (vaginal, oral, or anal)? No LMP: hysterectomy Have you ever had an STD? No Drug and Alcohol Question Answer Notes Total Score: 0 Interpretation: No problems reported Alcohol Screening: Question Answer Notes Did you have a drink containing alcohol in the past year? Ye s Points 4 Interpretation Positive How often did you have six or more drinks on one occas ion in the past year? Never (0 points) How many drinks did you have on a typica l day when you were drinking in the past year? 3 or 4 (1 point) How often did you have a drink containing alcohol in t he past year? Two to three times per week (3 points) BMI Care Goal Follow-Up Question Answer Notes Above Normal BMI Follow-Up Dietary management educatio n, guidance, and counseling Tobacco Use: Question Answer Notes Are you a: former smoker quit 1973 Additional Findings: Tobacco Non-User Current non-smoker How long has it been since you last smoked? > 10 years updated 08/15/2021 REASON FOR REFERRAL No Information VITAL SIGNS Weight 166.4 lbs Jul, Height 5'0" in Jul, BMI 32.49 kg/m2 Jul, Heart Rate 74 /min Jul, Respiratory Rate 20 /min Jul, Temperature 97.7 degrees Fahrenheit Jul, Oximetry 98RA Jul, Blood pressure systolic 114 mm Hg Jul, Blood pressure diastolic 72 mm Hg Jul, MEDICATIONS Medication SIG (Take, Route, Frequency, Duration) Notes Start Da te End Date Status Shingrix 50 MCG 1 injection Intramuscular on , then repeat in 2-6 mos for 1 dose(s) Sep, Not-Taking Advil 200 MG 1 tablet as needed Orally every 6 hrs prn Active Triamcinolone Acetonide 0.1 % 1 application Externally Twice a day ptn itching Jun, Active OneTouch Ultra 2 - 1 strip - DAILY & PRN Nov, Active Lisinopril 10 MG 1 tablet orally Daily Active Pindolol 10 mg TAKE 1 TABLET DAILY A ctive Colchicine 0.6 MG 1 tablet Orally once, with repeat dose 2 hours later Apr, Not-Taking Atorvastatin Calcium 80 MG 1 tab orally Daily Active Trihexyphenidyl HCl 2MG 1 tab orally tid Active glipiZIDE 5 MG one in am, 1/2 at pm Orally Once a day 19 M 2020 Active Primidone 250 MG 1 tablet Orally bid Active metFORMIN HCl 500 MG 1 tab orally Daily with meals Active Indapamide 1.25MG 1 tab Orally Daily Active Allopurinol 300 MG 1 tablet Orally Once a day Active Voltaren 1 % 4 gm Externally qid, prn pain Jun, Active PROCEDURES No Information RESULTS No Results REASON FOR VISIT 4 month follow up MEDICAL (GENERAL) HISTORY Type Description Date Medical History mammography 08/19/2013 Medical History DM type 2 Medical History HTN Medical History Kidney stone Medical History Essential and other specified forms of t remor Medical History Shoulder pain Medical History Echo done 01/26/2016 Surgical History GALLBLADDER Surgical History HYSTERECTOMY Surgical History KIDNEY STONE Surgical History colonoscopy 2009 told she was ok Surgical History Cyst removed off scalp @ DERmatology Surgical History right cataract 07/12/2021 Hospitalization History surgery Goals Section No Information Health Concerns No Information MEDICAL EQUIPMENT No Information MENTAL STATUS No Information FUNCTIONAL STATUS No Information ASSESSMENTS Encounter Date Diagnosis Assessment Notes Treatment Notes Treatm ent Clinical Notes Jul, Diabetes mellitus (ICD-10 - E11.9) Jul, Essential tremor (ICD-10 - G25.0) Jul, Mixed hyperlipidemia (ICD-10 - E78.2) Jul, Gout (ICD-10 - M10.9) Jul, Essential hypertension (ICD-10 - I10) Jul, Pre-op exam (ICD-10 - Z01.818) Jul, Primary osteoarthritis of both knees (ICD-10 - M 17.0) PLAN OF TREATMENT Medication Medication Name Sig Start Date Stop Date Pindolol 10 mg TAKE 1 TABLET DAILY Indapamide 1.25MG 1 tab Orally Daily Lisinopril 10 MG 1 tablet orally Daily OneTouch Ultra 2 - 1 strip - DAILY & PRN Nov, Atorvastatin Calcium 80 MG 1 tab orally Daily Advil 200 MG 1 tablet as needed Orally every 6 hrs prn Trihexyphenidyl HCl 2MG 1 tab orally tid Triamcinolone Acetonide 0.1 % 1 application Externally Twice a day ptn itching Jun, Primidone 250 MG 1 tablet Orally bid Allopurinol 300 MG 1 tablet Orally Once a day metFORMIN HCl 500 MG 1 tab orally Daily with meals Voltaren 1 % 4 gm Externally qid, prn pain Jun, glipiZIDE 5 MG one in am, 1/2 at pm Orally Once a day 11 April, 2 021 Next Appt Details in spring Reason: Provider Name:Morris Gomez, 2022-03-14 10 :00:00 AM, [address]awanna BARNES, , [place], [address], Insurance Providers Payer Name Payer Address Payer Phone Insured Name Patient Relati onship to Insured Coverage Start Date Coverage End Date MEDICARE Part A and B [address] [facility] [address] [phone] [facility]ID[facility] [address] [address] [facility] [address] SHERIDAN MCKEON [id number]
--- OUTSIDE RECORDS SUMMARY | 2021-09-20 09:26 | CCD ---
Author Author [facility] Organization [facility] Address Unknown Phone Unavailable Care Team Providers Care Senior Staff Accountant Name Role Phone Miranda Alba Unavailable PROBLEMS Type Condition ICD9-CM Code FDQ10-WD Code Onset Dates Condition S tatus W/U Status Risk SNOMED Code Notes Problem Essential hypertension I10 Active confirmed 81963244 Problem Aortic sclerosis I70.0 Active confirmed 677 19556 Problem Cellulitis L03.90 Active confirmed 416857467 Problem Diabetes mellitus E11.9 Active confirmed 73 252378 Problem Mixed hyperlipidemia E78.2 Active confirmed 122062775 Problem Gout M10.9 Active confirmed 23480963 Problem Essential tremor G25.0 Active confirmed 609 598976 Problem Breast screening Z12.31 Active confirmed 305 499051 Problem Primary osteoarthritis of left hip M16.12 Activ e confirmed 237118615226280 Problem Nephrolithiasis N20.0 Active confirmed 9557 0007 Problem Primary osteoarthritis of right knee M17.11 Act chaparro confirmed 656730438966704 Problem Cataract of right eye, unspecified cataract type H 26.9 Active confirmed 826964285 Problem Primary osteoarthritis of left knee M17.12 Acti ve confirmed 484174055221557 Problem Primary osteoarthritis of both knees M17.0 Act chaparro confirmed 923695970 Problem Other chronic pain G89.29 Active confirmed 8 1526267 Problem 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 Active confirmed 666455797 Problem Hypovitaminosis D E55.9 Active confirmed 34 470730 Problem Hyperparathyroidism E21.3 Active confirmed 68393229 Problem 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 Active confirm ed 34034513 ALLERGIES No Known Allergies ENCOUNTERS from 1940 to 2021-07-09 Encounter Location Date Provider Diagnosis [facility] Jordy BARNES [phone] [place] [address] 16 Jun, 2021 Miranda Alba Essential hypertension I10 IMMUNIZATIONS Vaccine Route Administration Date Status COVID-19 dose #2 given elsewhere Unspecified Unknown March 29, 2021 Administered Influenza (High Dose 65 & up) IM Intramuscular Sep 05, 2017 A dministered Influenza 18 yrs & older Flublok IM Intramuscular Nov 03, 2018 Administered Influenza 18 yrs & older Flublok IM Intramuscular Sep 02, 2019 Administered Influenza (High Dose 65 & up) IM Intramuscular Oct 11, 2016 A dministered Influenza Pharmacy Given Unknown Sep 17, 2020 Adminis tered COVID-19 dose #1 given elsewhere Unspecified Unknown Dec 19, 2020 Administered Influenza 6mo & up Fluzone IM Intramuscular [...] Notes Total Score: 2 Interpretation: Alcohol Education Jainism: Question Answer Notes Jainism No worship beliefs that would impact health care. Sexual [...] since you last smoked? > 10 years updated07/05/2021 REASON FOR REFERRAL No Information VITAL SIGNS No information MEDICATIONS Medication SIG (Take, Route, Frequency, Duration) Notes Start Da te End Date Status Primidone 250 MG 1 tablet Orally bid Active Colchicine 0.6 MG 1 tablet Orally once, with repeat dose 2 hours later Apr, Not-Taking Indapamide 1.25MG 1 tab Orally Daily for 90 day(s) Active OneTouch Ultra 2 - 1 strip - DAILY & PRN Nov, Active Shingrix 50 MCG 1 injection Intramuscular on ce, then repeat in 2-6 mos for 1 dose(s) Sep, Not-Taking Lisinopril 10 MG 1 tablet orally Daily Active Trihexyphenidyl HCl 2MG 1 tab orally tid Active glipiZIDE 5 MG one in am, 1/2 at pm Orally Once a day for 90 da ys March, Active Advil 200 MG 1 tablet as needed Orally every 6 hrs prn Active Triamcinolone Acetonide 0.1 % 1 application Externally Twice a day ptn itching Jun, Active metFORMIN HCl 500 MG 1 tab orally Daily with meals for 90 days Active Atorvastatin Calcium 80 MG 1 tab orally Daily Active Pindolol 10 mg TAKE 1 TABLET DAILY A ctive Allopurinol 300 MG 1 tablet Orally Once a day for 90 days Active Voltaren 1 % 4 gm Externally qid, prn pain Jun, Active PROCEDURES No Information RESULTS No Results REASON FOR VISIT No Information MEDICAL (GENERAL) HISTORY Type Description Date Medical [...] History Cyst removed off scalp @ DERmatology 12 /10/2016 Hospitalization History surgery Goals Section No Information Health Concerns No Information MEDICAL EQUIPMENT No Information MENTAL STATUS No Information FUNCTIONAL STATUS No Information ASSESSMENTS Encounter Date Diagnosis Assessment Notes Treatment Notes Treatm ent Clinical Notes Jun, Essential hypertension (ICD-10 - I10) PLAN OF TREATMENT Medication Medication Name Sig Start Date Stop Date OneTouch Ultra 2 - 1 strip - DAILY & PRN Nov, Lisinopril 10 MG 1 tablet orally Daily Allopurinol 300 MG 1 tablet Orally Once a day for 90 days Advil 200 MG 1 tablet as needed Orally every 6 hrs prn Primidone 250 MG 1 tablet Orally bid Voltaren 1 % 4 gm Externally qid, prn pain Jun, glipiZIDE 5 MG one in am, 1/2 at pm Orally Once a day for 90 da ys March, metFORMIN HCl 500 MG 1 tab orally Daily with meals for 90 days Triamcinolone Acetonide 0.1 % 1 application Externally Twice a day ptn itching Jun, Trihexyphenidyl HCl 2MG 1 tab orally tid Treatment Notes Test Name Order Date DAVEY CHEST 2 VIEW 2021-07-09 Next Appt Details Provider Name:Morris Mcduffie Gomez, 2021-08-15 09 :00:00 AM, [address] , , [place], [address], Insurance Providers Payer Name Payer Address Payer Phone Insured Name Patient Relati onship to Insured Coverage Start Date Coverage End Date [facility] [address] [address] [facility] [address] SHERIDAN MCKEON [id number] MEDICARE Part A and B [address] [facility] [phone] SHERIDAN MCKEON self
--- OUTSIDE RECORDS SUMMARY | 2021-09-20 09:26 | CCD ---
Author Author [facility] Organization [facility] Address Unknown Phone Unavailable Care Team Providers Care Recruiting Intern Name Role Phone Morris Gomez Unavailable PROBLEMS Type Condition ICD9-CM Code [id number] Code Onset Dates Condition S tatus W/U Status Risk SNOMED Code Notes Problem Essential hypertension I10 Active confirmed 18482404 Problem Aortic sclerosis I70.0 Active confirmed 677 47336 Problem Cellulitis L03.90 Active confirmed 618893356 Problem Diabetes mellitus E11.9 Active confirmed 73 344787 Problem Mixed hyperlipidemia E78.2 Active confirmed 463346891 Problem Gout M10.9 Active confirmed 59082315 Problem Essential tremor G25.0 Active confirmed 609 801641 Problem Breast screening Z12.31 Active confirmed 305 113535 Problem Primary osteoarthritis of left hip M16.12 Activ e confirmed 535403977832445 Problem Nephrolithiasis N20.0 Active confirmed 9557 0007 Problem Primary osteoarthritis of right knee M17.11 Act chaparro confirmed 236658298094397 Problem Cataract of right eye, unspecified cataract type H 26.9 Active confirmed 370393832 Problem Primary osteoarthritis of left knee M17.12 Acti ve confirmed 081493551009685 Problem Primary osteoarthritis of both knees M17.0 Act chaparro confirmed 529319143 Problem Other chronic pain G89.29 Active confirmed 8 4762860 Problem 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 Active confirmed 452248819 Problem Hypovitaminosis D E55.9 Active confirmed 34 770519 Problem Hyperparathyroidism E21.3 Active confirmed 02663197 Problem 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 Active confirm ed 92249749 ALLERGIES No Known Allergies ENCOUNTERS from 1940 to 2021-07-17 Encounter Location Date Provider Diagnosis [facility] Jordy BARNES [phone] [place] [address] Jun, Morris Gomez Diabetes mellitus E11.9 IMMUNIZATIONS Vaccine Route Administration Date Status Influenza Pharmacy Given Unknown Sep 17, 2020 Adminis tered COVID-19 dose #1 given elsewhere Unspecified Unknown Dec 19, 2020 Administered COVID-19 dose #2 given elsewhere Unspecified Unknown March 29, 2021 Administered Influenza 18 yrs & older Flublok IM Intramuscular Sep 02, 2019 Administered Influenza (High Dose 65 & up) IM Intramuscular Sep 05, 2017 A dministered TDAP 0.5mL (Boostrix) IM Intramuscular Dec 04, 2017 Administe red Influenza 18 yrs & older Flublok IM Intramuscular Nov 03, 2018 Administered Influenza 6mo & up Fluzone IM Intramuscular Aug 29, 2010 Admi nistered Influenza (High Dose 65 & up) IM Intramuscular Oct 11, 2016 A dministered Influenza (High Dose 65 & up) IM Intramuscular Nov 23, 2015 A dministered Pneumococcal 0.5mL Prevnar 13 IM Intramuscular June 07, 2015 A dministered Influenza 6mo & up Fluzone IM Intramuscular Sep 27, 2014 Admi nistered Pneumococcal Adult 0.5mL Pneumovax 23 IM Intramuscular February 02, 2014 Administered Influenza 6mo & up Fluzone IM [...] Notes Total Score: 2 Interpretation: Alcohol Education Yazidi: Question Answer Notes Yazidi No mandaeism beliefs that would impact health care. Sexual [...] Calcium 80 MG 1 tab orally Daily for 90 days Active OneTouch Ultra 2 - 1 strip - DAILY & PRN Nov, Active Shingrix 50 MCG 1 injection Intramuscular on ce, then repeat in 2-6 mos for 1 dose(s) Sep, Not-Taking Lisinopril 10 MG 1 tablet orally Daily Active glipiZIDE 5 MG one in am, 1/2 at pm Orally Once a day for 90 da ys March, Active Colchicine 0.6 MG 1 tablet Orally once, with repeat dose 2 hours later Apr, Not-Taking Indapamide 1.25MG 1 tab Orally Daily for 90 day(s) Active Triamcinolone Acetonide 0.1 % 1 application Externally Twice a day ptn itching Jun, Active Allopurinol 300 MG 1 tablet Orally Once a day for 90 days Active Trihexyphenidyl HCl 2MG 1 tab orally tid Active Pindolol 10 mg TAKE 1 TABLET DAILY A ctive Advil 200 MG 1 tablet as needed Orally every 6 hrs prn Active Voltaren 1 % 4 gm Externally qid, prn pain Jun, Active PROCEDURES No Information RESULTS No Results REASON FOR VISIT refill MEDICAL (GENERAL) HISTORY Type Description Date Medical [...] History Cyst removed off scalp @ DERmatology Hospitalization History surgery Goals Section No Information Health Concerns No Information MEDICAL EQUIPMENT No Information MENTAL STATUS No Information FUNCTIONAL STATUS No Information ASSESSMENTS Encounter Date Diagnosis Assessment Notes Treatment Notes Treatm ent Clinical Notes Jun, Diabetes mellitus (ICD-10 - E11.9) PLAN OF TREATMENT Medication Medication Name Sig Start Date Stop Date OneTouch Ultra 2 - 1 strip - DAILY & PRN Nov, Lisinopril 10 MG 1 tablet orally Daily Advil 200 MG 1 tablet as needed Orally every 6 hrs prn Primidone 250 MG 1 tablet Orally bid Atorvastatin Calcium 80 MG 1 tab orally Daily for 90 days Voltaren 1 % 4 gm Externally qid, prn pain Jun, Triamcinolone Acetonide 0.1 % 1 application Externally Twice a day ptn itching Jun, metFORMIN HCl 500 MG 1 tab orally Daily with meals for 90 days Allopurinol 300 MG 1 tablet Orally Once a day for 90 days Trihexyphenidyl HCl 2MG 1 tab orally tid glipiZIDE 5 MG one in am, 1/2 at pm Orally Once a day for 90 da ys March, Next Appt Details Provider Name:Morris Gomez, 2021-08-15 09 :00:00 AM, [address] , , [place], [address], Insurance Providers Payer Name Payer Address Payer Phone Insured Name Patient Relati onship to Insured Coverage Start Date Coverage End Date MEDICARE Part A and B [address] [facility] [id number] SHERIDAN MCKEON self [facility] [address] [address] [facility] [address] SHERIDAN MCKEON [id number]
--- OUTSIDE RECORDS SUMMARY | 2021-09-20 09:26 | CCD ---
Author Author [facility] Organization [facility] Address Unknown Phone Unavailable Care Team Providers Care Grocery Team Member Name Role Phone Morris Gomez Unavailable PROBLEMS Type Condition ICD9-CM Code [id number] Code Onset Dates Condition S tatus W/U Status Risk SNOMED Code Notes Problem Essential hypertension I10 Active confirmed 68919760 Problem Aortic sclerosis I70.0 Active confirmed 677 59346 Problem Cellulitis L03.90 Active confirmed 718420336 Problem Diabetes mellitus E11.9 Active confirmed 73 268665 Problem Mixed hyperlipidemia E78.2 Active confirmed 220869306 Problem Gout M10.9 Active confirmed 35650695 Problem Essential tremor G25.0 Active confirmed 609 020324 Problem Breast screening Z12.31 Active confirmed 305 585387 Problem Primary osteoarthritis of left hip M16.12 Activ e confirmed 203222664506505 Problem Nephrolithiasis N20.0 Active confirmed 9557 0007 Problem Primary osteoarthritis of right knee M17.11 Act chaparro confirmed [id number] Problem Cataract of right eye, unspecified cataract type H 26.9 Active confirmed 347568028 Problem Primary osteoarthritis of left knee M17.12 Acti ve confirmed [id number] Problem Primary osteoarthritis of both knees M17.0 Act chaparro confirmed 065342131 Problem Other chronic pain G89.29 Active confirmed 8 8539769 Problem 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 Active confirmed 858760318 Problem Hypovitaminosis D E55.9 Active confirmed 34 925613 Problem Hyperparathyroidism E21.3 Active confirmed 28282231 Problem 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 Sexual [...] Notes Start Da te End Date Status Voltaren 1 % 4 gm Externally qid, prn pain Jun, Active Allopurinol 300 MG 1 tablet Orally Once a day for 90 days Active metFORMIN HCl 500 MG 1 tab orally Daily with meals for 90 days Active Lisinopril 10 MG 1 tablet orally Daily Active OneTouch Ultra 2 - 1 strip - DAILY & PRN Nov, Active Pindolol 10 mg TAKE 1 TABLET DAILY A ctive Colchicine 0.6 MG 1 tablet Orally once, with repeat dose 2 hours later Apr, Not-Taking Primidone 250 MG 1 tablet Orally bid for 90 day(s) Active Shingrix 50 MCG 1 injection Intramuscular on ce, then repeat in 2-6 mos for 1 dose(s) Sep, Not-Taking Trihexyphenidyl HCl 2MG 1 tab orally tid Active Advil 200 MG 1 tablet as needed Orally every 6 hrs prn Active glipiZIDE 5 MG one in am, 1/2 at pm Orally Once a day for 90 da ys March, Active Atorvastatin Calcium 80 MG 1 tab orally Daily for 90 days Active Indapamide 1.25MG 1 tab Orally Daily for 90 day(s) Active Triamcinolone Acetonide 0.1 % 1 application Externally Twice a day ptn itching Jun, Active PROCEDURES No Information RESULTS No Results REASON FOR VISIT med refill MEDICAL (GENERAL) HISTORY Type Description Date [...] E11.9) Jul, Essential tremor (ICD-10 - G25.0) PLAN OF TREATMENT Medication Medication Name Sig Start Date Stop Date Lisinopril 10 MG 1 tablet orally Daily Atorvastatin Calcium 80 MG 1 tab orally Daily for 90 days metFORMIN HCl 500 MG 1 tab orally Daily with meals for 90 days Voltaren 1 % 4 gm Externally qid, prn pain Jun, OneTouch Ultra 2 - 1 strip - DAILY & PRN Nov, Triamcinolone Acetonide 0.1 % 1 application Externally Twice a day ptn itching Jun, Trihexyphenidyl HCl 2MG 1 tab orally tid Allopurinol 300 MG 1 tablet Orally Once a day for 90 days Advil 200 MG 1 tablet as needed Orally every 6 hrs prn glipiZIDE 5 MG one in am, 1/2 at pm Orally Once a day for 90 da ys March, Primidone 250 MG 1 tablet Orally bid for 90 day(s) Next Appt Details Provider Name:Morris Esparzah, 2021-08-15 09 :00:00 AM, [address] , , [place], [address], Insurance Providers Payer Name Payer Address Payer Phone Insured Name Patient Relati onship to Insured Coverage Start Date Coverage End Date [facility] [address] [facility] [address] SHERIDAN MCKEON [id number] MEDICARE Part A and B [address] [facility] [address] SHERIDAN MCKEON self
--- OUTSIDE RECORDS SUMMARY | 2021-09-20 09:27 | CCD ---
Author Author [facility] Organization [facility] Address Unknown Phone Unavailable Care Team Providers Care Choir Leader Name Role Phone Morris Gomez Unavailable PROBLEMS Type Condition ICD9-CM Code [id number] Code Onset Dates Condition S tatus W/U Status Risk SNOMED Code Notes Problem Essential hypertension I10 Active confirmed 85711104 Problem Aortic sclerosis I70.0 Active confirmed 677 03974 Problem Cellulitis L03.90 Active confirmed 583136337 Problem Diabetes mellitus E11.9 Active confirmed 73 490229 Problem Mixed hyperlipidemia E78.2 Active confirmed 038099040 Problem Gout M10.9 Active confirmed 34556064 Problem Essential tremor G25.0 Active confirmed 609 327323 Problem Breast screening Z12.31 Active confirmed 305 724170 Problem Primary osteoarthritis of left hip M16.12 Activ e confirmed 583837106807384 Problem Nephrolithiasis N20.0 Active confirmed 9557 0007 Problem Primary osteoarthritis of right knee M17.11 Act chaparro confirmed 916726106173838 Problem Cataract of right eye, unspecified cataract type H 26.9 Active confirmed 675865599 Problem Primary osteoarthritis of left knee M17.12 Acti ve confirmed 190313794482072 Problem Primary osteoarthritis of both knees M17.0 Act chaparro confirmed 541252287 Problem Other chronic pain G89.29 Active confirmed 8 3370246 Problem 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 Active confirmed 486255435 Problem Hypovitaminosis D E55.9 Active confirmed 34 413030 Problem Hyperparathyroidism E21.3 Active confirmed 14912914 Problem 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 Active confirm ed [id number] ALLERGIES No Known Allergies ENCOUNTERS from 1940 to 2021-07-07 Encounter Location Date Provider Diagnosis [facility] Jordy DE LA O [phone] [place] [address] Jun, Morris Gomez Diabetes mellitus E11.9 ; Pre-op exam Z0 1.818 ; Essential tremor G25.0 ; Essential hypertension I10 ; Cataract of right eye, unspecified cataract type H26.9 and Primary osteoarthritis of both knees M17.0 IMMUNIZATIONS Vaccine Route Administration Date Status TDAP 0.5mL (Boostrix) IM Intramuscular Dec 04, 2017 Administe red Influenza 18 yrs & older Flublok IM Intramuscular Nov 03, 2018 Administered Influenza 18 yrs & older Flublok IM Intramuscular Sep 02, 2019 Administered COVID-19 dose #2 given elsewhere Unspecified Unknown March 29, 2021 Administered Influenza (High Dose 65 & up) IM Intramuscular Nov 23, 2015 A dministered Influenza (High Dose 65 & up) IM Intramuscular Oct 11, 2016 A dministered Influenza (High Dose 65 & up) IM Intramuscular Sep 05, 2017 A dministered Influenza 6mo & up Fluzone IM Intramuscular Aug 29, 2010 Admi nistered Pneumococcal 0.5mL Prevnar 13 IM Intramuscular June 07, 2015 A dministered Pneumococcal Adult 0.5mL Pneumovax 23 IM Intramuscular February 02, 2014 Administered COVID-19 dose #1 given elsewhere Unspecified Unknown Dec 19, 2020 Administered Influenza Pharmacy Given Unknown Sep 17, 2020 [...] Notes Total Score: 2 Interpretation: Alcohol Education Hindu: Question Answer Notes Hindu No taoism beliefs that would impact health care. Sexual [...] FOR REFERRAL No Information VITAL SIGNS Weight 163 lbs Jun, Height 5'0" in Jun, BMI 31.83 kg/m2 Jun, Heart Rate 85 /min Jun, Respiratory Rate 18 /min Jun, Temperature 97.8 degrees Fahrenheit Jun, Oximetry 97RA Jun, Blood pressure systolic 131 mm Hg Jun, Blood pressure diastolic 67 mm Hg Jun, MEDICATIONS Medication SIG (Take, Route, Frequency, Duration) [...] Externally qid, prn pain Jun, Active PROCEDURES from 1940 to 2021-07-07 Procedure Date Ordered Result Body Site FC-ELECTROCARDIOGRAM, TRACING ONLY 2021-07-05 N/A PC-INTERPRETATION AND REPORT 2021-07-05 N/A RESULTS No Results REASON FOR VISIT Pre Op, Cataract OD, Dr. Syed, EKG & Chest xray needed/will need to come on 07/09 for xray MEDICAL (GENERAL) HISTORY Type Description Date Medical [...] Notes Jun, Diabetes mellitus (ICD-10 - E11.9) Jun, Pre-op exam (ICD-10 - Z01.818) 1. Urgency of the surgery: elective 2. Active Cardiac Conditions: none 3. Surgery-specific risk: low 4: Patient's functional capacity: approx 4 METS based on described activities. 5: Clinical risk factors: None Patient is a suitable very low risk candidate for the planned procedure. Recommendation: She should take her pindolol as scheduled. Allopurinol may be omitted on the morning of surgery. She should also omit glipizide, indapamide,lisinopril, metformin on the morning of surgery. She may take her primidone and trihexyphenidyl. The metformin should also be omitted the evening before surgery. Jun, Essential tremor (ICD-10 - G25.0) Jun, Essential hypertension (ICD-10 - I10) Jun, Cataract of right eye, unspecified catar act type (ICD-10 - H26.9) Jun, Primary osteoarthritis of both knees (ICD-10 - [...] 2MG 1 tab orally tid Treatment Notes Assessment Notes Clinical Notes Pre-op exam 1. Urgency of the surgery: e lective2. Active Cardiac Conditions: none3. Surgery-specific risk: low4: Patient's functional capacity: approx 4 METS based on described activities.5: Clinical risk factors: NonePatient is a suitable very low risk candidate for the planned procedure.Recommendation: She should take her pindolol as scheduled. Allopurinol may be omitted on the morning of surgery. She should also omit glipizide, indapamide,lisinopril, metformin on the morning of surgery. She may take her primidone and trihexyphenidyl. The metformin should also be omitted the evening before surgery. Next Appt Details as scheduled. Reason: Provider Name:Morris Gomez, 2021-08-15 09 :00:00 AM, [address] , , [place], [address], Insurance Providers Payer Name Payer Address Payer Phone Insured Name Patient Relati onship to Insured Coverage Start Date Coverage End Date MEDICARE Part A and B [address] [facility] [address] SHERIDAN MCEKON self [facility] [address] [address] [facility] [id number] SHERIDAN MCKEON [id number]
--- OUTSIDE RECORDS SUMMARY | 2021-09-20 09:27 | CCD ---
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 Name Role Phone Froy Gomez MD Unavailable Unavailable Froy Gomez MD Unavailable Unavailable Froy Gomez MD Unavailable Unavailable Froy Gomez MD Unavailable Unavailable Froy Gomez MD Unavailable Unavailable Froy Gomez MD Unavailable Unavailable Froy Gomez MD Unavailable Unavailable Froy Gomez MD Unavailable Unavailable Froy Gomez MD Unavailable Unavailable Froy Gomez MD Unavailable Unavailable Froy Gomez MD Unavailable Unavailable Froy Gomez MD Unavailable Unavailable Froy Gomez MD Unavailable Unavailable Froy Gomez MD Unavailable Unavailable Froy Gomez MD Unavailable Unavailable Froy Gomez MD Unavailable Unavailable Froy Gomez MD Unavailable Unavailable Froy Gomez MD Unavailable Unavailable Froy Gomez MD Unavailable Unavailable Froy Gomez MD Unavailable Unavailable Froy Gomez MD Unavailable Unavailable Froy Gomez MD Unavailable Unavailable Froy Gomez MD Unavailable Unavailable Froy Gomez MD Unavailable Unavailable Froy Gomez MD Unavailable Unavailable Froy Gomez MD Unavailable Unavailable Froy Gomez MD Unavailable Unavailable Froy Gomez MD Unavailable Unavailable Froy Gomez MD Unavailable Unavailable Froy Gomez MD Unavailable Unavailable Froy Gomez MD Unavailable Unavailable Froy Gomez MD Unavailable Unavailable Froy Gomez MD Unavailable Unavailable Froy Gomez MD Unavailable Unavailable Froy Gomez MD Unavailable Unavailable Froy Gomez MD Unavailable Unavailable Froy Gomez MD Unavailable Unavailable Froy Gomez MD Unavailable Unavailable Froy Gomez MD Unavailable Unavailable Froy Gomez MD Unavailable Unavailable Froy Gomez MD Unavailable Unavailable Froy Gomez MD Unavailable Unavailable Froy Gomez MD Unavailable Unavailable Froy Gomez MD Unavailable Unavailable Froy Gomez MD Unavailable Unavailable Froy Gomez MD Unavailable Unavailable Froy Gomez MD Unavailable Unavailable Froy Gomez MD Unavailable Unavailable Froy Gomez MD Unavailable Unavailable Froy Gomez MD Unavailable Unavailable Froy Gomez MD Unavailable Unavailable Froy Gomez MD Unavailable Unavailable Froy oGmez MD Unavailable Unavailable Froy Gomez MD Unavailable Unavailable Froy Gomez MD Unavailable Unavailable Froy Gomez MD Unavailable Unavailable Froy Gomez MD Unavailable Unavailable Froy Gomez MD Unavailable Unavailable Froy Gomez MD Unavailable Unavailable Froy Gomez MD Unavailable Unavailable Froy Gomez MD Unavailable Unavailable Froy Gomez MD Unavailable Unavailable Froy Gomez MD Unavailable Unavailable Froy Gomez MD Unavailable Unavailable Froy Gomez MD Unavailable Unavailable Froy Gomez MD Unavailable Unavailable Froy Gomez MD Unavailable Unavailable Froy Gomez MD Unavailable Unavailable Froy Gomez MD Unavailable Unavailable Froy Gomez MD Unavailable Unavailable Froy Gomez MD Unavailable Unavailable Froy Gomez MD Unavailable Unavailable Froy Gomez MD Unavailable Unavailable Froy Gomez MD Unavailable Unavailable Feola, T Vandana PA Unavailable Unavailable Feola, T Vandana PA Unavailable Unavailable Feola, T Vandana PA Unavailable Unavailable Feola, T Vandana PA Unavailable Unavailable Feola, T Vandana PA Unavailable Unavailable Feola, T Vandana PA Unavailable Unavailable Feola, T Vandana PA Unavailable Unavailable Feola, T Vandana PA Unavailable Unavailable Feola, T Vandana PA Unavailable Unavailable Feola, T Vandana PA Unavailable Unavailable Feola, T Vandana PA Unavailable Unavailable Feola, T Vandana PA Unavailable Unavailable Feola, T Vandana PA Unavailable Unavailable Feola, T Vandana PA Unavailable Unavailable Feola, T Vandana PA Unavailable Unavailable Feola, T Vandana PA Unavailable Unavailable Feola, T Vandana PA Unavailable Unavailable Feola, T Vandana PA Unavailable Unavailable Feola, T Vandana PA Unavailable Unavailable Feola, T Vandana PA Unavailable Unavailable Feola, T Vandana PA Unavailable Unavailable Feola, T Vandana PA Unavailable Unavailable Feola, T Vandana PA Unavailable Unavailable Feola, T Vandana PA Unavailable Unavailable Feola, T Vandana PA Unavailable Unavailable Feola, T Vandana PA Unavailable Unavailable Feola, T Vandana PA Unavailable Unavailable Feola, T Vandana PA Unavailable Unavailable Feola, T Vandana PA Unavailable Unavailable Feola, T Vandana PA Unavailable Unavailable Feola, T Vandana PA Unavailable Unavailable Feola, T Vandana PA Unavailable Unavailable Feola, T Vandana PA Unavailable Unavailable Feola, T Vandana PA Unavailable Unavailable Feola, T Vandana PA Unavailable Unavailable Feola, T Vandana PA Unavailable Unavailable Feola, T Vandana PA Unavailable Unavailable Feola, T Vandana PA Unavailable Unavailable Feola, T Vandana PA Unavailable Unavailable Feola, T Vandana PA Unavailable Unavailable Feola, T Vandana PA Unavailable Unavailable Calderon Joaquin, Aditya Frazier MD, FACS Unavailable Unavailable Calderon Joaquin, Aditya Frazier MD, FACS Unavailable Unavailable Calderon Joaquin, Aditya Frazier MD, FACS Unavailable Unavailable Calderon Joaquin, Aditya Frazier MD, FACS Unavailable Unavailable Calderon Joaquin, Aditya Frazier MD, FACS Unavailable Unavailable Calderon Joaquin, Aditya Frazier MD, FACS Unavailable Unavailable Calderon Joaquin, Aditya Frazier MD, FACS Unavailable Unavailable Calderon Joaquin, Aditya Frazier MD, FACS Unavailable Unavailable Calderon Joaquin, Aditya Frazier MD, FACS Unavailable Unavailable Calderon Joaquin, Aditya Frazier MD, FACS Unavailable Unavailable Calderon Joaquin, Aditya Frazier MD, FACS Unavailable Unavailable Calderon Joaquin, Aditya Frazier MD, FACS Unavailable Unavailable Calderon Joaquin, Aditya Frazier MD, FACS Unavailable Unavailable Calderon Joaquin, Aditya Frazier MD, FACS Unavailable Unavailable Calderon Joaquin, Aditya Frazier MD, FACS Unavailable Unavailable Calderon Joaquin, Aditya Frazier MD, FACS Unavailable Unavailable Calderon Joaquin, Aditya Frazier MD, FACS Unavailable Unavailable Calderon Joaquin, Aditya Frazier MD, FACS Unavailable Unavailable Calderon Joaquin, Aditya Frazier MD, FACS Unavailable Unavailable Calderon Joaquin, Aditya Frazier MD, FACS Unavailable Unavailable Calderon Joaquin, Aditya Frazier MD, FACS Unavailable Unavailable Calderon Joaquin, Aditya Frazier MD, FACS Unavailable Unavailable Calderon Joaquin, Aditya Frazier MD, FACS Unavailable Unavailable Calderon Joauqin, Aditya Frazier MD, FACS Unavailable Unavailable Calderon Joaquin, Aditya Frazier MD, FACS Unavailable Unavailable Calderon Joaquin, Aditya Frazier MD, FACS Unavailable Unavailable Calderon Joaquin, Aditya Frazier MD, FACS Unavailable Unavailable Calderon Joaquin, Aditya Frazier MD, FACS Unavailable Unavailable Calderon Joaquin, Aditya Frazier MD, FACS Unavailable Unavailable Calderon Joaquin, Aditya Frazier MD, FACS Unavailable Unavailable Calderon Joaquin, Aditya Frazier MD, FACS Unavailable Unavailable Calderon Joaquin, Aditya Frazier MD, FACS Unavailable Unavailable Calderon Joaquin, Aditya Frazier MD, FACS Unavailable Unavailable Calderon Joaquin, Aditya Frazier MD, FACS Unavailable Unavailable Calderon Joaquin, Aditya Frazier MD, FACS Unavailable Unavailable Calderon Joaquin, Aditya Frazier MD, FACS Unavailable Unavailable Calderon Joaquin, Aditya Frazier MD, FACS Unavailable Unavailable Yumiko Joaquin, Aditya Frazier MD, FACS Unavailable Unavailable Yumiko Joaquin, Aditya Frazier MD, FACS Unavailable Unavailable Schoeneman, Milford DO Unavailable Unavailable Schoeneman, Maribel DO Unavailable Unavailable Schoeneman, Milford DO Unavailable Unavailable Schoeneman, Milford DO Unavailable Unavailable Schoeneman, Maribel DO Unavailable Unavailable Schoeneman, Milford DO Unavailable Unavailable Schoeneman, Maribel DO Unavailable Unavailable Schoeneman, Milford DO Unavailable Unavailable Schoeneman, Milford DO Unavailable Unavailable Schoeneman, Maribel DO Unavailable Unavailable Schoeneman, Maribel DO Unavailable Unavailable Schoeneman, Milford DO Unavailable Unavailable Schoeneman, Milford DO Unavailable Unavailable Schoeneman, Maribel DO Unavailable Unavailable Schoeneman, Maribel DO Unavailable Unavailable Schoeneman, Maribel DO Unavailable Unavailable Schoeneman, Maribel DO Unavailable Unavailable Schoeneman, Maribel DO Unavailable Unavailable Schoeneman, Milford DO Unavailable Unavailable Schoeneman, Milford DO Unavailable Unavailable Schoeneman, Milford DO Unavailable Unavailable Schoeneman, Milford DO Unavailable Unavailable Schoeneman, Milford DO Unavailable Unavailable Schoeneman, Milford DO Unavailable Unavailable Schoeneman, Maribel DO Unavailable Unavailable Schoeneman, Milford DO Unavailable Unavailable Schoeneman, Maribel DO Unavailable Unavailable Schoeneman, Maribel DO Unavailable Unavailable Schoeneman, Milford DO Unavailable Unavailable Schoeneman, Milford DO Unavailable Unavailable Schoeneman, Milford DO Unavailable Unavailable Schoeneman, Maribel DO Unavailable Unavailable Schoeneman, Milford DO Unavailable Unavailable Schoeneman, Maribel DO Unavailable Unavailable Schoeneman, Maribel DO Unavailable Unavailable Schoeneman, Milford DO Unavailable Unavailable Schoeneman, Milford DO Unavailable Unavailable Schoeneman, Maribel DO Unavailable Unavailable Schoeneman, Maribel DO Unavailable Unavailable Schoeneman, Maribel DO Unavailable Unavailable Schoeneman, Milford DO Unavailable Unavailable Re-disclosure Warning The records that you are about to access may contain information from federally-assisted alcohol or drug abuse programs. If such information is present, then the following federally mandated warning applies: This information has been disclosed to you from records protected by federal confidentiality rules (42 CFR part 2). The federal rules prohibit you from making any further disclosure of this information unless further disclosure is expressly permitted by the written consent of the person to whom it pertains or as otherwise permitted by 42 CFR part 2. A general authorization for the release of medical or other information is NOT sufficient for this purpose. The Federal rules restrict any use of the information to criminally investigate or prosecute any alcohol or drug abuse patient.The records that you are about to access may contain highly sensitive health information, the redisclosure of which is protected by Article 27-F of the [facility] Public Health law. If you continue you may have access to information: Regarding HIV / AIDS; Provided by facilities licensed or operated by the [facility] Office of Mental Health; or Provided by the [facility] Office for People With Developmental Disabilities. If such information is present, then the following [facility] mandated warning applies: This information has been disclosed to you from confidential records which are protected by state law. State law prohibits you from making any further disclosure of this information without the specific written consent of the person to whom it pertains, or as otherwise permitted by law. Any unauthorized further disclosure in violation of state law may result in a fine or usp sentence or both. A general authorization for the release of medical or other information is NOT sufficient authorization for further disc losure. Allergies and Adverse Reactions Type Description Substance Reaction Status Data Source(s ) Allergy to substance No Known Allergies No known allergies (situation ) NAFISA (Freddie Joaquin MD [facility]) Allergy to substance No Known Allergies No known allergies (situation ) NAFISA (Freddie Joaquin MD [facility]) Family History Family Member Name Family Member Gender Family Member Status Date o f Status Description Data Source(s) Unknown Male Problem MEDENT ([facility]) Unknown Unknown Problem [facility] ([facility]) Encounters Encounter Providers Location Date Indications Data Source(s ) Outpatient<td ID="encounterTypeDescripti onID0">3 - 4 Week Follow- Up</td><td></td><td>Freddie Langston MD [facility]</td><td>08/17/2021</td><td>11:50AM</td><td>12:48PM</td><td></td> Freddie Langston MD [facility] 08/17/2021 11:50:00 AM EDT - 08/17/2021 12:48:00 PM EDT NAFISA (Freddie Joaquin MD [facility]) Outpatient [address] [facility] [place] [address] 08/15/2021 12:00:00 AM EDT eCW1 ([facility]) Unknown [address] [facility] [place] [address] 08/02/2021 12:00:00 AM EDT eCW1 ([facility]) Outpatient<td ID="encounterTypeDescripti onID1">1 Month Follow- Up</td><td></td><td>Freddie Langston MD [facility]</td><td>07/27/2021</td><td>7:11AM</td><td>8:44AM</td><td></td> Freddie Langston MD [facility] 07/27/2021 07:11:00 AM EDT - 07/27/2021 08:44:00 AM EDT NAFISA (Freddie Joaquin MD [facility]) <td ID="encounterTypeDescriptionID2">TRI AGE NON URGENT</td><td></td><td>Freddie Langston MD [facility]</td><td>07/20/2021</td><td>12:28PM</td><td>1:37PM</td><td></td>Outpatient Freddie Langston MD [facility] 07/20/2021 12:28:00 PM EDT - 07/20/2021 01:37:00 PM EDT NAFISA (Freddie Joaquin MD [facility]) Outpatient<td ID="encounterTypeDescripti onID3">1 Day Post OP</td><td></td><td>Freddie Langston MD [facility]</td><td>07/17/2021</td><td>8:00AM</td><td>9:49AM</td><td></td> Freddie Langston MD [facility] 07/17/2021 08:00:00 AM EDT - 07/17/2021 09:49:00 AM EDT NAFISA (Freddie Joaquin MD [facility]) Unknown [address] [facility] [place] [address] 07/16/2021 12:00:00 AM EDT eCW1 ([facility]) <td ID="encounterTypeDescriptionID4">1 D ay Post OP</td><td></td><td>Freddie Joaquin MD [facility]</td><td>07/13/2021</td><td>11:53AM</td><td>12:23PM</td><td></td>Outpatient Freddie Langston MD [facility] 07/13/2021 11:53:00 AM EDT - 07/13/2021 12:23:00 PM EDT NAFISA (Freddie Joaquin MD [facility]) <td ID="encounterTypeDescriptionID5">Ext racapsular cataract removal w/IOL implant</td><td></td><td>Freddie Langston MD [facility]</td><td>07/12/2021</td><td>10:01AM</td><td>10:01AM</td><td></td>Outpatient Freddie Langston MD [facility] 07/12/2021 10:01:00 AM EDT - 07/12/2021 10:01:00 AM EDT NAFISA (Freddie Joaquin MD [facility]) Unknown [address] [facility] [place] [address] 07/09/2021 12:00:00 AM EDT eCW1 ([facility]) Outpatient [address] [facility] [place] [address] 07/05/2021 12:00:00 AM EDT eCW1 ([facility]) Outpatient<td ID="encounterTypeDescripti onID6">Cataract Evaluation</td><td></td><td>Freddie Langston MD [facility]</td><td>05/31/2021</td><td>12:32PM</td><td>2:28PM</td><td></td> Freddie Langston MD [facility] 05/31/2021 12:32:00 PM EDT - 05/31/2021 02:28:00 PM EDT NAFISA (Freddie Joaquin MD [facility]) <td ID="encounterTypeDescriptionID7">6 M ont Follow-Up</td><td>Freddie Joaquin MD, FACS</td><td>Freddie Langston MD [facility]</td><td>05/23/2021</td><td>2:04PM</td><td>3:56PM</td><td><content ID="encounterDiagnosisID7-0">History of Nicotine Dependence</content>, <content ID="encounterDiagnosisID7-1">Essential Hypertension</content>, <content ID="encounterDiagnosisID7-2">Cataract Senile Nuclear</content>, <content ID="encounterDiagnosisID7-3">Taking Medication For Diabetes Long-term Use of Oral Hypoglycemics</content>, <content ID="encounterDiagnosisID7-4">Retinopathy Hypertensive Both Eyes</content>, <content ID="encounterDiagnosisID7-5">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</content>, <content ID="encounterDiagnosisID7-6">Cataract Senile Cortical Bilateral</content></td>Outpatient Attender: Freddie Joaquin MD, FACS Freddie Langston MD [facility] 05/23/2021 02:04:00 PM EDT - 05/23/2021 03:56:00 PM ED T Taking Medication For Diabetes Long-term Use of Oral HypoglycemicsHistory of Nicotine DependenceTaking Medication For Diabetes Long-term Use of Oral HypoglycemicsHistory of Nicotine Dependence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Essential Hypertension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Essential HypertensionCataract Senile Cortical BilateralCataract Senile Cortical BilateralRetinopathy Hypertensive Both EyesCataract Senile NuclearRetinopathy Hypertensive Both EyesCataract Senile Nuclear NAFISA (Freddie Joaquin MD [facility]) Taking Medication For Diabetes Long-term Use of Oral Hypoglycemics History of Nicotine Dependence Taking Medication For Diabetes Long-term Use of Oral Hypoglycemics History of Nicotine Dependence 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 [id number] 04/10/2021 12:00:00 AM EDT eCW1 ([facility]) Unknown [address] [facility] [address] 03/28/2021 12:00:00 AM EDT eCW1 ([facility]) [place] [address] [facility] [address] [place] [address] 03/28/2021 12:00:00 AM EDT eCW1 ([facility]) Outpatient [address] [facility] [place] [address] 03/27/2021 12:00:00 AM EDT eCW1 ([facility]) Unknown [address] [facility] [place] [address] 03/27/2021 12:00:00 AM EDT eCW1 ([facility]) Unknown [address] [facility] [place] [address] 11/12/2020 12:00:00 AM EST eCW1 ([facility]) Unknown [address] [facility] [place] [address] 10/20/2020 12:00:00 AM EST eCW1 ([facility]) Unknown [address] [facility] [place] [address] 10/06/2020 12:00:00 AM EST eCW1 ([facility]) Outpatient Attender: Morris Gomez MD 10/04/2020 09:00:00 AM E [facility] Unknown [address] [facility] [place] [address] 10/04/2020 12:00:00 AM EST eCW1 ([facility]) <td ID="encounterTypeDescriptionID8">1 Y ear Follow-Up</td><td>Freddie Joaquin MD, FACS</td><td>Freddie Langston MD [facility]</td><td>09/29/2020</td><td>1:17PM</td><td>2:33PM</td><td><content ID="encounterDiagnosisID8-0">History of Nicotine Dependence</content>, <content ID="encounterDiagnosisID8-1">Essential Hypertension</content>, <content ID="encounterDiagnosisID8-2">Cataract Senile Nuclear</content>, <content ID="encounterDiagnosisID8-3">Taking Medication For Diabetes Long-term Use of Oral Hypoglycemics</content>, <content ID="encounterDiagnosisID8-4">Retinopathy Hypertensive Both Eyes</content>, <content ID="encounterDiagnosisID8-5">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</content>, <content ID="encounterDiagnosisID8-6">Cataract Senile Cortical Bilateral</content></td>Outpatient Attender: Freddie Joaquin MD, FACS Freddie Langston MD [facility] 09/29/2020 01:17:00 PM EST - 09/29/2020 02:33:00 PM ES T Taking Medication For Diabetes Long-term Use of Oral HypoglycemicsHistory of Nicotine DependenceTaking Medication For Diabetes Long-term Use of Oral HypoglycemicsHistory of Nicotine Dependence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Essential Hypertension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Essential HypertensionCataract Senile Cortical BilateralCataract Senile Cortical BilateralRetinopathy Hypertensive Both EyesCataract Senile NuclearRetinopathy Hypertensive Both EyesCataract Senile Nuclear NAFISA (Freddie Joaquin MD [facility]) Taking Medication For Diabetes Long-term Use of Oral Hypoglycemics History of Nicotine Dependence Taking Medication For Diabetes Long-term Use of Oral Hypoglycemics History of Nicotine Dependence 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 Essential Hypertension 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 Essential Hypertension 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 Outpatient [address] [facility] [place] [address] 09/27/2020 12:00:00 AM EST eCW1 ([facility]) Unknown [address] [facility] [address] 09/27/2020 12:00:00 AM EST eCW1 ([facility]) Unknown [address] [facility] [address] 09/19/2020 12:00:00 AM EDT eCW1 ([facility]) [facility] [address] [facility] [address] 08/11/2020 12:00:00 AM EDT eCW1 ([facility]) Outpatient Attender: Maribel Fine DO 0 04/29/2019 11:43:00 AM EDT - 04/29/2019 11:43:00 AM T [facility] Immunizations Vaccine Date Status Description Data Source(s) COVID-19 dose #2 given elsewhere Unspecified 03/29/2021 02:2 2:00 PM EDT completed eCW1 ([facility]) COVID-19 dose #2 given elsewhere Unspecified 03/29/2021 02:2 2:00 PM EDT completed eCW1 ([facility]) COVID-19 dose #2 given elsewhere Unspecified 03/29/2021 02:2 2:00 PM EDT completed eCW1 ([facility]) COVID-19 dose #2 given elsewhere Unspecified 03/29/2021 02:2 2:00 PM EDT completed eCW1 ([facility]) COVID-19 dose #2 given elsewhere Unspecified 03/29/2021 02:2 2:00 PM EDT completed eCW1 ([facility]) COVID-19 dose #2 given elsewhere Unspecified 03/29/2021 02:2 2:00 PM EDT completed eCW1 ([facility]) COVID-19 dose #2 given elsewhere Unspecified 03/29/2021 02:2 2:00 PM EDT completed eCW1 ([facility]) COVID-19 dose #2 given elsewhere Unspecified 03/29/2021 02:2 2:00 PM EDT completed eCW1 ([facility]) COVID-19 dose #1 given elsewhere Unspecified 12/19/2020 02:2 1:00 PM EST completed eCW1 ([facility]) COVID-19 dose #1 given elsewhere Unspecified 12/19/2020 02:2 1:00 PM EST completed eCW1 ([facility]) COVID-19 dose #1 given elsewhere Unspecified 12/19/2020 02:2 1:00 PM EST completed eCW1 ([facility]) COVID-19 dose #1 given elsewhere Unspecified 12/19/2020 02:2 1:00 PM EST completed eCW1 ([facility]) COVID-19 dose #1 given elsewhere Unspecified 12/19/2020 02:2 1:00 PM EST completed eCW1 ([facility]) COVID-19 dose #1 given elsewhere Unspecified 12/19/2020 02:2 1:00 PM EST completed eCW1 ([facility]) COVID-19 dose #1 given elsewhere Unspecified 12/19/2020 02:2 1:00 PM EST completed eCW1 ([facility]) COVID-19 dose #1 given elsewhere Unspecified 12/19/2020 02:2 1:00 PM EST completed eCW1 ([facility]) IIV3. This is one of two codes replacing CVX 15, which is being retired. 09/17/2020 08:06:00 AM EDT completed eCW1 ([facility]) IIV3. This is one of two codes replacing CVX 15, which is being retired. 09/17/2020 08:06:00 AM EDT completed eCW1 ([facility]) IIV3. This is one of two codes replacing CVX 15, which is being retired. 09/17/2020 08:06:00 AM EDT completed eCW1 ([facility]) IIV3. This is one of two codes replacing CVX 15, which is being retired. 09/17/2020 08:06:00 AM EDT completed eCW1 ([facility]) IIV3. This is one of two codes replacing CVX 15, which is being retired. 09/17/2020 08:06:00 AM EDT completed eCW1 ([facility]) IIV3. This is one of two codes replacing CVX 15, which is being retired. 09/17/2020 08:06:00 AM EDT completed eCW1 ([facility]) IIV3. This is one of two codes replacing CVX 15, which is being retired. 09/17/2020 08:06:00 AM EDT completed eCW1 ([facility]) IIV3. This is one of two codes replacing CVX 15, which is being retired. 09/17/2020 08:06:00 AM EDT completed eCW1 ([facility]) IIV3. This is one of two codes replacing CVX 15, which is being retired. 09/17/2020 08:06:00 AM EDT completed eCW1 ([facility]) IIV3. This is one of two codes replacing CVX 15, which is being retired. 09/17/2020 08:06:00 AM EDT completed eCW1 ([facility]) IIV3. This is one of two codes replacing CVX 15, which is being retired. 09/17/2020 08:06:00 AM EDT completed eCW1 ([facility]) IIV3. This is one of two codes replacing CVX 15, which is being retired. 09/17/2020 08:06:00 AM EDT completed eCW1 ([facility]) IIV3. This is one of two codes replacing CVX 15, which is being retired. 09/17/2020 08:06:00 AM EDT completed eCW1 ([facility]) IIV3. This is one of two codes replacing CVX 15, which is being retired. 09/17/2020 08:06:00 AM EDT completed eCW1 ([facility]) IIV3. This is one of two codes replacing CVX 15, which is being retired. 09/17/2020 08:06:00 AM EDT completed eCW1 ([facility]) IIV3. This is one of two codes replacing CVX 15, which is being retired. 09/17/2020 08:06:00 AM EDT completed eCW1 ([facility]) IIV3. This is one of two codes replacing CVX 15, which is being retired. 09/17/2020 08:06:00 AM EDT completed eCW1 ([facility]) Medications Medication Brand Name Start Date Product Form Dose Route Admi nistrative Instructions Pharmacy Instructions Status Indications Reaction Description Data Source(s) 240 mcg/0.7 mL 09/13/2021 12:00:00 AM EDT syringe 0 INJECT DIRECTED PER STANDING ORDER INJECT DIRECTED PER STANDING ORDER SOLD: 09/13/2021 [facility] Triamcinolone Acetonide 0.001 MG/MG Topi keira Ointment Triamcinolone Acetonide 0.1 % Triamcinolone Acetonide 0.1 % 07/05/2021 12:00:00 AM EDT 1.0 {application} active Triamcinolone Aceton ruddy 0.1 % eCW1 ([facility]) Diclofenac Sodium 0.01 MG/MG Topical Gel [Voltaren] Voltaren 1 % Voltaren 1 % 07/05/2021 12:00:00 AM EDT active Voltaren 1 % eCW1 ([facility]) Triamcinolone Acetonide 0.001 MG/MG Topi keira Ointment Triamcinolone Acetonide 0.1 % Triamcinolone Acetonide 0.1 % 07/05/2021 12:00:00 AM EDT 1.0 {application} active Triamcinolone Aceton ruddy 0.1 % eCW1 ([facility]) Diclofenac Sodium 0.01 MG/MG Topical Gel [Voltaren] Voltaren 1 % Voltaren 1 % 07/05/2021 12:00:00 AM EDT active Voltaren 1 % eCW1 ([facility]) Triamcinolone Acetonide 0.001 MG/MG Topi keira Ointment Triamcinolone Acetonide 0.1 % Triamcinolone Acetonide 0.1 % 07/05/2021 12:00:00 AM EDT 1.0 {application} active Triamcinolone Aceton ruddy 0.1 % eCW1 ([facility]) Diclofenac Sodium 0.01 MG/MG Topical Gel [Voltaren] Voltaren 1 % Voltaren 1 % 07/05/2021 12:00:00 AM EDT active Voltaren 1 % eCW1 ([facility]) Triamcinolone Acetonide 0.001 MG/MG Topi keira Ointment Triamcinolone Acetonide 0.1 % Triamcinolone Acetonide 0.1 % 07/05/2021 12:00:00 AM EDT 1.0 {application} active Triamcinolone Aceton ruddy 0.1 % eCW1 ([facility]) Diclofenac Sodium 0.01 MG/MG Topical Gel [Voltaren] Voltaren 1 % Voltaren 1 % 07/05/2021 12:00:00 AM EDT active Voltaren 1 % eCW1 ([facility]) Triamcinolone Acetonide 0.001 MG/MG Topi keira Ointment Triamcinolone Acetonide 0.1 % Triamcinolone Acetonide 0.1 % 07/05/2021 12:00:00 AM EDT 1.0 {application} active Triamcinolone Aceton ruddy 0.1 % eCW1 ([facility]) Diclofenac Sodium 0.01 MG/MG Topical Gel [Voltaren] Voltaren 1 % Voltaren 1 % 07/05/2021 12:00:00 AM EDT active Voltaren 1 % eCW1 ([facility]) Polymyxin B 28008 UNT/ML / Trimethoprim 1 MG/ML Ophthalmic Solution 10,000 unit- 1 mg/mL POLYMYXIN B SULF/TRIMETHOPRIM 07/02/2021 12:00:00 AM EDT drops 1 0 INSTILL 1 DROP IN THE RIGHT EYE FOUR TIMES A DAY TO BEGIN THREE DAYS PRIOR TO SURGERY INSTILL 1 DROP IN THE RIGHT EYE FOUR PRESLEY ES A DAY TO BEGIN THREE DAYS PRIOR TO SURGERY SOLD: 07/05/2021 [facility] 0.5 % 07/02/2021 12:00:00 AM EDT drops 5 INSTILL 1 DROP IN THE RIGHT EYE FOUR TIMES A DAY TO BEGIN THREE DAYS PRIOR TO SURGERY INSTILL 1 DROP IN THE RIGHT EYE FOUR TIMES A DAY TO BEGIN THREE DAYS PRIOR TO SURGERY SOLD: 07/05/2021 [facility] 1 % 07/02/2021 12:00:00 AM EDT drops,suspension 5 INSTILL 1 DROP IN THE RIGHT EYE FOUR TIMES A DAY TO BE STARTED AFTER SURGERY INSTILL 1 DROP IN THE RIGHT EYE FOUR TIMES A DAY TO BE STARTED AFTER SURGERY SOLD: 07/05/2021 [facility] NITROFURANTOIN, MACROCRYSTALS 25 MG / Ni trofurantoin, Monohydrate 75 MG Oral Capsule 100 mg NITROFURANTOIN MONOHYD/M-CRYST 05/03/2021 12:00:00 AM EDT ca psule 20 TAKE ONE CAPSULE BY MOUTH TWICE A DAY FOR 10 DAYS TAKE ONE CAPSULE BY MOUTH TWICE A DAY FOR 10 DAYS SOLD: 05/03/2021 [facility] Glipizide 5 MG Oral Tablet GlipiZIDE 5 MG GlipiZIDE 5 MG 04/11/2021 12:00:00 AM EDT active GlipiZIDE 5 MG eC W1 ([facility]) Glipizide 5 MG Oral Tablet glipiZIDE 5 MG glipiZIDE 5 MG 04/11/2021 12:00:00 AM EDT active glipiZIDE 5 MG eC W1 ([facility]) Glipizide 5 MG Oral Tablet glipiZIDE 5 MG glipiZIDE 5 MG 04/11/2021 12:00:00 AM EDT active glipiZIDE 5 MG eC W1 ([facility]) Glipizide 5 MG Oral Tablet glipiZIDE 5 MG glipiZIDE 5 MG 04/11/2021 12:00:00 AM EDT active glipiZIDE 5 MG eC W1 ([facility]) Glipizide 5 MG Oral Tablet glipiZIDE 5 MG glipiZIDE 5 MG 04/11/2021 12:00:00 AM EDT active glipiZIDE 5 MG eC W1 ([facility]) Glipizide 5 MG Oral Tablet glipiZIDE 5 MG glipiZIDE 5 MG 04/11/2021 12:00:00 AM EDT active glipiZIDE 5 MG eC W1 ([facility]) Insurance Providers Payer name Policy type / Coverage type Policy ID Covered constitution party ID Covered constitution party's relationship to hinkle Policy Hinkle Plan Information [place] (pr) [facility] Part B [id number] Family Dependent [id number] Umr (pr) [facility] Part B [id number] Family Dependent [id number] [place] Primary [id number] Self [id number] [place] [employer] [id number] Self [id number] [place] Medicare Medicare Part B [id number] Self [id number] [facility] [employer] [id number] Self [id number] Medicare Part B [facility] Individual Policy 0 [id number] Self 0 UMR [id number] S [id number] [place] MEDICARE DIVISION [id number] S [id number] MEDICARE - [place] [id number] S [id number] [employer] [place] Other 0 [id number] Self 0 Medicare Part B [facility] Individual Policy 0 [id number] Self 0 ANSI-Medicare Part B [id number] ANSI-Commercial [id number] ANSI-Not a Secondary Insurance [id number] ANSI-Not a Secondary Insurance [id number] ANSI-Commercial [id number] ANSI-Medicare Part B [id number] ANSI-Medicare Part B [id number] ANSI-Commercial [id number] ANSI-Not a Secondary Insurance [id number] ANSI-Commercial [id number] ANSI-Medicare Part B [id number] ANSI-Not a Secondary Insurance [id number] ANSI-Commercial [id number] ANSI-Medicare Part B [id number] ANSI-Not a Secondary Insurance [id number] ANSI-Not a Secondary Insurance [id number] ANSI-Commercial [id number] ANSI-Medicare Part B [id number] ANSI-Commercial [id number] ANSI-Not a Secondary Insurance [id number] ANSI-Medicare Part B [id number] ANSI-Medicare Part B [id number] ANSI-Commercial [id number] ANSI-Commercial [id number] ANSI-Medicare Part B [id number] ANSI-Medicare Part B [id number] ANSI-Commercial [id number] ANSI-Medicare Part B [id number] ANSI-Commercial [id number] ANSI-Commercial [id number] ANSI-Medicare Part B [id number] Medicare Part B of [facility] Other 0 [id number] S elf 0 [employer] [id number] HU2 [id number] MEDICARE [id number] SP [id number] A [id number] A [place] [id number] HU2 [id number] [place] [id number] HU2 [id number] [place] Medigap Part B [id number] Self UMR [facility] CARE [id number] HU2 [id number] Medicare [place] Primary [id number] Self MEDICARE [id number] SP [id number] [employer] [place] Other 0 [id number] Self 0 Medicare Part B of [facility] Individual Policy 0 [id number] Self 0 UMR [facility] [id number] [employer] [place] Other 0 [id number] Self 0 Problems, Conditions, and Diagnoses Code Display Name Description Problem Type Effective Dates Data Source(s) M81.0 Age-related osteoporosis without current pathological fracture AGE-RELATED OSTEOPOROSIS W/O CURRENT PATHOLOGICAL Diagnosis 10/04/2020 10:00:00 A [facility] M85.89 Other specified disorders of bone densit y and structure, multiple sites OTH DISRD OF BONE DENSITY AND STRUCTURE, MULTIPLE Diagnosis 09/24 10:00:00 AM [facility] R74.01 ELEVATION OF LEVELS OF LIVER TRANSAMINAS ELEVATION OF LEVELS OF LIVER TRANSAMINAS Diagnosis 10/04/2020 10:00:00 AM [facility] Z78.0 Asymptomatic menopausal state ASYMPTOMATIC MENOPAUSAL STATE Diagnosis 10/04/2020 10:00:00 AM [facility] M17.0 [id number] Primary osteoarthritis of both knees Prob estefania 07/05/2021 12:00:00 AM EDT eCW1 ([facility]) H26.9 [id number] Cataract of right eye, unspecified catara ct type Problem 07/05/2021 12:00:00 AM EDT eCW1 ([facility]) E21.0 Primary hyperparathyroidism Hyperparathyroid bone dise ase Problem 11/12/2020 12:00:00 AM EST eCW1 ([facility]) E21.3 Hyperparathyroidism Hyperparathyroidism Problem 1 01/13/2020 12:00:00 AM EST eCW1 ([facility]) E55.9 [id number] Hypovitaminosis D Problem 11/12/2020 12:00:0 0 AM EST eCW1 ([facility]) 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 Problem 10/20/2020 12 :00:00 AM EST eCW1 ([facility]) M17.11 [id number] Primary osteoarthritis of right knee P roblem 09/27/2020 12:00:00 AM EST eCW1 ([facility]) Surgeries/Procedures Procedure Description Date Indications Data Source(s) PC-INTERPRETATION AND REPORT 07/05/2021 12:00:00 AM ED T eCW1 ([facility]) FC-ELECTROCARDIOGRAM, TRACING ONLY 07/05/2021 12:00:00 AM EDT eCW1 ([facility]) Intermediate Eye Exam Established Patient Intermediate Eye Exam Established Patient 09/29/2020 12:00:00 AM EST NAFISA (Tramaine jen Joaquin MD [facility]) Results ID Date Data Source VITAMIN D 25-HYDROXY 03/27/2021 12:00:00 AM EDT eCW1 ([facility]) Name Value Range Interpretation Code Description Data Gena rce(s) Supporting Document(s) 30.6 30.0-100.0 TOTAL 25(OH) VITAMIN D eC W1 ([facility]) ID Date Data Source PTH INTACT 03/27/2021 12:00:00 AM EDT eCW1 ([facility]) Name Value Range Interpretation Code Description Data Gena rce(s) Supporting Document(s) 85.7 18.5-88.0 PTH INTACT eCW1 ([facility]) ID Date Data Source Basic Metabolic Profile (BMP) 03/27/2021 12:00:00 AM EDT eCW 1 ([facility]) Name Value Range Interpretation Code Description Data Gena rce(s) Supporting Document(s) 1.00 0.55-1.30 CREATININE FOR GFR eCW1 ([facility]) 27 7-18 BLOOD UREA NITROGEN eCW1 ([facility]) 31 70-100 GLUCOSE, FASTING eCW1 ([facility]) 5.5 3.5-5.1 POTASSIUM SERUM eCW1 ([facility]) 138 136-145 SODIUM LEVEL eCW1 (Counts include 234 beds at the [facility]) 56.9 >39 GLOMERULAR FILTRATION RATE eCW 1 ([facility]) 105 98-107 CHLORIDE LEVEL eCW1 ([facility]) 9.2 8.8-10.2 CALCIUM LEVEL eCW1 ([facility]) 29 21-32 CARBON DIOXIDE LEVEL eCW1 (Replaced by [facility]) ID Date Data Source [id number] 03/27/2021 12:00:00 AM EDT eCW1 ([facility]) Name Value Range Interpretation Code Description Data Gean rce(s) Supporting Document(s) Hemoglobin A1c/Hemoglobin.total in Blood 5.6 HEMOGLOBIN A1c eCW1 ([facility]) ID Date Data Source [id number] 10/04/2020 09:59:00 AM EST [facility] DATE OF EXAMINATION: 10/04/2020 9:00 EST IMPRESSION: For a detailed report please refer to the software generated [employer]. Electronically signed in PS360 by: Rosa Kearns M.D. 10/04/2020 9:53 EST Name Value Range Interpretation Code Description Data Gena rce(s) Supporting Document(s) ID Date Data Source [id number] 10/04/2020 09:27:00 AM EST [facility] DATE OF EXAMINATION: 10/04/2020 9:00 EST ABDOMEN LIMITED COMPARED TO: No priors HISTORY: Abnormal LFTs Real-time ultrasound imaging was performed utilizing B- mode/caballero scale and colorDoppler imaging where applicable. The liver displays a normal homogeneous echotexture throughout. There is nointra or extrahepatic biliary dilation. Patient is status post cholecystectomy.The common bile duct measures 4 mm. The right kidney measures 10.2. There is nohydronephrosis. Pancreas and IVC appear normal but most of the pancreas isobscured by overlying bowel gas. IMPRESSION: Status post cholecystectomy. Liver is grossly unremarkable in appearance. Electronically signed in PS360 by: Rosa Kearns M.D. 10/04/2020 9:21 EST Name Value Range Interpretation Code Description Data Gena rce(s) Supporting Document(s) Procedure Social History Code Duration Value Status Description Data Source(s ) Smoking 08/20/2021 09:13:03 AM EDT Ex-smoker (finding) complet ed Ex-smoker (finding) NAFISA (Freddie Joaquin MD [facility]) Smoking 08/15/2021 12:00:00 AM EDT Former Smoker completed Former Smoker eCW1 ([facility]) Smoking 07/05/2021 12:00:00 AM EDT Former Smoker completed Former Smoker eCW1 ([facility]) Smoking 07/05/2021 12:00:00 AM EDT Former Smoker completed Former Smoker eCW1 ([facility]) Smoking 07/05/2021 12:00:00 AM EDT Former Smoker completed Former Smoker eCW1 ([facility]) Smoking 07/05/2021 12:00:00 AM EDT Former Smoker completed Former Smoker eCW1 ([facility]) Smoking 06/08/2021 10:13:41 AM EDT Ex-smoker (finding) complet ed Ex-smoker (finding) NAFISA (Freddie Joaquin MD [facility]) Smoking 03/27/2021 12:00:00 AM EDT Former Smoker completed Former Smoker eCW1 ([facility]) Smoking 03/27/2021 12:00:00 AM EDT Former Smoker completed Former Smoker eCW1 ([facility]) Smoking 03/27/2021 12:00:00 AM EDT Former Smoker completed Former Smoker eCW1 ([facility]) Smoking 03/27/2021 12:00:00 AM EDT Former Smoker completed Former Smoker eCW1 ([facility]) Smoking 03/27/2021 12:00:00 AM EDT Former Smoker completed Former Smoker eCW1 ([facility]) Smoking 09/27/2020 12:00:00 AM EST Former Smoker completed Former Smoker eCW1 ([facility]) Smoking 09/27/2020 12:00:00 AM EST Former Smoker completed Former Smoker eCW1 ([facility]) Smoking 09/27/2020 12:00:00 AM EST Former Smoker completed Former Smoker eCW1 ([facility]) Smoking 09/27/2020 12:00:00 AM EST Former Smoker completed Former Smoker eCW1 ([facility]) Smoking 09/27/2020 12:00:00 AM EST Former Smoker completed Former Smoker eCW1 ([facility]) Smoking 09/27/2020 12:00:00 AM EST Former Smoker completed Former Smoker eCW1 ([facility]) Vital Signs ID Date Data Source UNK Name Value Range Interpretation Code Description Data Source(s) Body weight 166.4 [lb_av] 166.4 [lb_av] eCW1 ([facility]) Body height [in_i] eCW1 ([facility]) Body mass index (BMI) [Ratio] 32.49 kg/m2 32.49 kg/m2 W1 ([facility]) Heart rate 74 /min 74 /min eCW1 ([facility]) Respiratory rate 20 /min 20 /min eCW1 ([facility]) Body temperature 97.7 [degF] 97.7 [degF] eCW1 ( [facility]) Systolic blood pressure 114 mm[Hg] 114 mm[Hg] e CW1 ([facility]) Diastolic blood pressure 72 mm[Hg] 72 mm[Hg] eCW1 ([facility]) Body height [in_i] eCW1 ([facility]) Body weight 163 [lb_av] 163 [lb_av] eCW1 ([facility]) Heart rate 85 /min 85 /min eCW1 ([facility]) Respiratory rate 18 /min 18 /min eCW1 ([facility]) Body temperature 97.8 [degF] 97.8 [degF] eCW1 ( [facility]) Systolic blood pressure 131 mm[Hg] 131 mm[Hg] e CW1 ([facility]) Diastolic blood pressure 67 mm[Hg] 67 mm[Hg] eCW1 ([facility]) Body mass index (BMI) [Ratio] 31.83 kg/m2 31.83 kg/m2 eCW1 ([facility]) Body weight 160.4 [lb_av] 160.4 [lb_av] eCW1 ([facility]) Body height [in_i] eCW1 ([facility]) Body mass index (BMI) [Ratio] 31.32 kg/m2 31.32 kg/m2 eCW1 ([facility]) Heart rate 70 /min 70 /min eCW1 ([facility]) Respiratory rate 18 /min 18 /min eCW1 ([facility]) Body temperature 98.4 [degF] 98.4 [degF] eCW1 ( [facility]) Systolic blood pressure 112 mm[Hg] 112 mm[Hg] e CW1 ([facility]) Diastolic blood pressure 65 mm[Hg] 65 mm[Hg] eCW1 ([facility]) Body weight 158 [lb_av] 158 [lb_av] eCW1 ([facility]) Body height [in_i] eCW1 ([facility]) Body mass index (BMI) [Ratio] 30.85 kg/m2 30.85 kg/m2 eCW1 ([facility]) Heart rate 72 /min 72 /min eCW1 ([facility]) Respiratory rate 19 /min 19 /min eCW1 ([facility]) Body temperature 98.6 [degF] 98.6 [degF] eCW1 ( [facility]) Systolic blood pressure 140 mm[Hg] 140 mm[Hg] e CW1 ([facility]) Diastolic blood pressure 70 mm[Hg] 70 mm[Hg] eCW1 ([facility]) Patient Treatment Plan of Care Planned Activity Planned Date Details Description Data Source (s) Diclofenac Sodium 0.01 MG/MG Topical Gel [Voltaren] 07/05/20 21 12:00:00 AM EDT eCW1 ([facility]) Triamcinolone Acetonide 0.001 MG/MG Topical Ointment 021 12:00:00 AM EDT eCW1 ([facility]) Triamcinolone Acetonide 0.001 MG/MG Topical Ointment 021 12:00:00 AM EDT eCW1 ([facility]) Diclofenac Sodium 0.01 MG/MG Topical Gel [Voltaren] 07/05/20 12:00:00 AM EDT eCW1 ([facility]) Diclofenac Sodium 0.01 MG/MG Topical Gel [Voltaren] 07/05/20 12:00:00 AM EDT eCW1 ([facility]) Triamcinolone Acetonide 0.001 MG/MG Topical Ointment 12:00:00 AM EDT eCW1 ([facility]) Diclofenac Sodium 0.01 MG/MG Topical Gel [Voltaren] 07/05/20 12:00:00 AM EDT eCW1 ([facility]) Triamcinolone Acetonide 0.001 MG/MG Topical Ointment 12:00:00 AM EDT eCW1 ([facility]) Diclofenac Sodium 0.01 MG/MG Topical Gel [Voltaren] 07/05/20 12:00:00 AM EDT eCW1 ([facility]) Triamcinolone Acetonide 0.001 MG/MG Topical Ointment 021 12:00:00 AM EDT eCW1 ([facility]) Glipizide 5 MG Oral Tablet 04/11/2021 12:00:00 AM EDT eCW1 ([facility]) Glipizide 5 MG Oral Tablet 04/11/2021 12:00:00 AM EDT eCW1 ([facility]) Glipizide 5 MG Oral Tablet 04/11/2021 12:00:00 AM EDT eCW1 ([facility]) Glipizide 5 MG Oral Tablet 04/11/2021 12:00:00 AM EDT eCW1 ([facility]) Glipizide 5 MG Oral Tablet 04/11/2021 12:00:00 AM EDT eCW1 ([facility]) Glipizide 5 MG Oral Tablet 04/11/2021 12:00:00 AM EDT eCW1 ([facility])
[2021-09-20] MEDS: FLURBIPROFEN 0.03% OPHTH SOLN 2.5 ML OS SCH ×3 (11:59→12:18)
[2021-09-20] MEDS: TETRACAINE 0.5% OPHTH SOLN 4ML OS SCH ×2 (11:59→12:10)
[2021-09-20] MEDS: PHENYLEPHRINE 2.5% OPHTH SOL 2ML OS SCH ×3 (11:59→12:17)
[2021-09-20] MEDS: CYCLOPENTOLATE 1% OPHTH SOLN 2 ML BTL OS SCH ×3 (11:59→12:17)
[2021-09-20 14:25] VITALS: BP 143/66
--- NOTE | 2021-09-20 15:14 | ROOPDOC ---
[facility] Report Of Operation Report of Operation DATE OF PROCEDURE: 09/20/2021 PREPROCEDURE DIAGNOSES: Cataract left eye. POSTPROCEDURE DIAGNOSES: Same. PROCEDURE PERFORMED: Cataract extraction with intraocular lens implantation left eye. SURGEON: Goran Cristobal MD GROCERY SUPERVISOR: None ANESTHESIA: Local. ESTIMATED BLOOD LOSS: None. COMPLICATIONS: None. SPECIMENS REMOVED: None DESCRIPTION OF PROCEDURE: The patient was brought to the operating room and prepped and draped in the usual sterile fashion and an eyelid speculum was inserted in the left eye. A paracentesis was made and the anterior chamber was inflated with non-preserved lidocaine. This was followed by injection of Viscoat. A groove was made in the superotemporal clear cornea which was tunneled forward with the crescent blade and the anterior chamber was entered with a 2.75 keratome. The cystotome was used to make an incision in the center of the capsule and a continuous curvilinear capsulorhexis was created. The lens was hydrodissected until it was found to rotate freely within the capsular bag. Phacoemulsification was then used to remove the lens in its entirety. Irrigation and aspiration were used to remove residual cortical material. The anterior chamber and capsular bag were reinflated with Provisc and a 23.5 diopter SN60AT lens was injected into the capsular bag using the [place] injector. The lens was dialed into place using the [place] hook. Irrigation and aspiration were used to remove residual viscoelastic. The wound was stromally hydrated until was found to be watertight and the eye was in an appropriate pressure. The eyelid speculum was removed from the eye and Maxitrol drops were placed over the left eye. The patient was transferred to the [facility] room in stable condition and will follow up tomorrow. The total CDE was 14.68. GORAN CRISTOBAL MD Sep 20, 2021 15:14
== END 2021-09-20 14:25 | disposition home or self-care (01) ==
LOC: M SDC 09:21
PROVIDERS: ATTEND Ophthalmology
DX: H25.12 Age-related nuclear cataract, left eye (principal); I10 Essential (primary) hypertension; E78.5 Hyperlipidemia, unspecified; E11.9 Type 2 diabetes mellitus without complications; Z79.84 Long term (current) use of oral hypoglycemic drugs; Z79.899 Other long term (current) drug therapy
CPT/HCPCS: 66984; J2250; J3010; V2632

== ENCOUNTER → 2022-03-14 | Outpatient (REF) | payer MEDICARE, OTHER ==
[~2022-03-14] MED LIST changes: -DUOVISC (0.50ML VISCOAT/0.85ML PROVISC) OPHTH KIT As Ordered ONE; -LIDOCAINE 1% SDV 5ML VIAL As Ordered ONE; -LR 1,000 ML IV SCH; -MAXITROL OPHTH SUSP 5 ML As Ordered ONE; -MIDAZOLAM INJ 2MG/2ML VIAL (J2250 PER 1MG) As Ordered ONE; -fentaNYL 100 MCG/2 ML INJECTION (J3010) As Ordered ONE
== END ==
LOC: M SFHCCLAY 10:33
PROVIDERS: ATTEND Family Medicine
DX: E11.9 Type 2 diabetes mellitus without complications (principal); Z53.9 Procedure and treatment not carried out, unspecified reason

== ENCOUNTER → 2022-03-21 | Outpatient (REF) | payer MEDICARE, OTHER ==
[2022-03-21 12:07] LABS: CREATININE FOR GFR 1.05 MG/DL (0.55-1.30); GLOMERULAR FILTRATION RATE 53.7 (>32)
[2022-03-21 12:08] LABS: ALBUMIN 3.5 GM/DL (3.2-5.2); BILIRUBIN,TOTAL 0.2 MG/DL (0.2-1.0); CALCIUM LEVEL 9.5 MG/DL (8.8-10.2); TOTAL PROTEIN 6.9 GM/DL (6.4-8.2)
[2022-03-21 12:10] LABS: PTH INTACT 170.8 PG/ML (18.5-88.0)
== END ==
LOC: M SFHCCLAY 08:22
PROVIDERS: ATTEND Family Medicine
DX: E11.9 Type 2 diabetes mellitus without complications (principal); E78.2 Mixed hyperlipidemia; R74.01 Elevation of levels of liver transaminase levels; E55.9 Vitamin D deficiency, unspecified; E21.3 Hyperparathyroidism, unspecified; I10 Essential (primary) hypertension

== ENCOUNTER → 2022-08-14 | Outpatient (REF) | payer MEDICARE, OTHER ==
[~2022-08-14] MED LIST changes: +INDA1.253 PO; -INDA125TA PO
[2022-08-14 12:02] LABS: CREATININE FOR GFR 1.06 MG/DL (0.55-1.30); GLOMERULAR FILTRATION RATE 53.1 (>32); POTASSIUM SERUM 5.2 MEQ/L (3.5-5.1)
[2022-08-14 12:42] LABS: PTH INTACT 111.8 PG/ML (18.5-88.0); TOTAL 25(OH) VITAMIN D 34.5 NG/ML (30.0-100.0)
== END ==
LOC: M SFHCCLAY 08:51
PROVIDERS: ATTEND Family Medicine
DX: E11.9 Type 2 diabetes mellitus without complications (principal); I10 Essential (primary) hypertension; E78.2 Mixed hyperlipidemia; N25.81 Secondary hyperparathyroidism of renal origin

== ENCOUNTER → 2023-01-22 | Outpatient (REF) | payer MEDICARE, OTHER ==
[2023-01-22 17:30] LABS: CREATININE, URINE 41.5 MG/DL
[2023-01-22 17:31] LABS: MAU/CREAT RATIO 14.4 MCG/MG (0.0-30.0)
[2023-01-22 17:33] LABS: ALBUMIN 3.6 G/DL (3.2-5.2); BILIRUBIN,TOTAL 0.2 MG/DL (0.3-1.2); CALCIUM LEVEL 9.4 MG/DL (8.3-10.6); CREATININE FOR GFR 0.96 MG/DL (0.55-1.30); GLOMERULAR FILTRATION RATE 59.4 (>32); POTASSIUM SERUM 5.8 MMOL/L (3.5-5.1); PTH INTACT 89.3 PG/ML (18.5-88.0)
[2023-01-22 17:35] LABS: TOTAL 25(OH) VITAMIN D 32.1 NG/ML (20.0-100.0)
[2023-01-22 17:55] LABS: HEMOGLOBIN A1c 5.8 % (4.0-6.0)
== END ==
LOC: M SFHCCLAY 10:44
PROVIDERS: ATTEND Family Medicine
DX: E78.2 Mixed hyperlipidemia (principal); E11.9 Type 2 diabetes mellitus without complications; I10 Essential (primary) hypertension; M81.0 Age-related osteoporosis without current pathological fracture

== ENCOUNTER → 2023-08-01 | Outpatient (REF) | payer MEDICARE, OTHER ==
[2023-08-01 19:40] LABS: CREATININE FOR GFR 1.02 MG/DL (0.55-1.30); GLOMERULAR FILTRATION RATE 55.4 (>32); POTASSIUM SERUM 5.3 MMOL/L (3.5-5.1)
== END ==
LOC: M SFHCCLAY 10:39
PROVIDERS: ATTEND Family Medicine
DX: E11.9 Type 2 diabetes mellitus without complications (principal); I10 Essential (primary) hypertension

== ENCOUNTER → 2023-12-05 | Outpatient (REF) | payer MEDICARE, OTHER ==
[2023-12-05 18:08] LABS: HEMOGLOBIN A1c 6.3 % (4.0-6.0)
[2023-12-05 18:15] LABS: APPEARANCE, URINE CLEAR (CLEAR); BACTERIA, URINE AUTO NEGATIVE (NEGATIVE); BILIRUBIN, URINE AUTO NEGATIVE (NEGATIVE); BLOOD, URINE BLOOD NEGATIVE (NEGATIVE); COLOR, URINE YELLOW (YELLOW); GLUCOSE, URINE (UA) AUTO NEGATIVE (NEGATIVE); KETONE, URINE AUTO NEGATIVE (NEGATIVE); LEUKOCYTE ESTERASE, URINE AUTO NEGATIVE (NEGATIVE); MUCUS, URINE SMALL (NEGATIVE); NITRITE, URINE AUTO NEGATIVE (NEGATIVE); PROTEIN, URINE AUTO NEGATIVE (NEGATIVE); RBC, URINE AUTO 0 /HPF (0-3); SPECIFIC GRAVITY URINE AUTO 1.017 (1.002-1.035); SQUAMOUS EPITHELIAL CELL UR AU 1 /HPF (0-6); UROBILINOGEN, URINE AUTO 0.2 mg/dL (0.0-2.0); WBC, URINE AUTO 1 /HPF (0-3)
[2023-12-05 18:16] LABS: CREATININE, URINE 111.7 MG/DL; MAU/CREAT RATIO 8.9 MCG/MG (0.0-30.0)
[2023-12-05 18:34] LABS: ALBUMIN 3.3 G/DL (3.2-5.2); BILIRUBIN,TOTAL 0.2 MG/DL (0.3-1.2); CALCIUM LEVEL 8.8 MG/DL (8.3-10.6); CHOLESTEROL RISK RATIO 2.31 (<5); CREATININE FOR GFR 0.95 MG/DL (0.55-1.30); HDL CHOLESTEROL 84.7 MG/DL (>40); LDL CHOLESTEROL 77.7 MG/DL (<100); NON-HDL-C 111.3 MG/DL; POTASSIUM SERUM 5.5 MMOL/L (3.5-5.1); TOTAL PROTEIN 6.7 G/DL (5.7-8.2)
== END ==
LOC: M SFHCCLAY 12:07
PROVIDERS: ATTEND Family Medicine
DX: E78.2 Mixed hyperlipidemia (principal); E11.9 Type 2 diabetes mellitus without complications; I10 Essential (primary) hypertension; N20.0 Calculus of kidney

== ENCOUNTER → 2023-12-12 | Outpatient (REF) | payer MEDICARE, OTHER ==
[2023-12-12 13:06] LABS: BLOOD UREA NITROGEN 13 MG/DL (9-23); CALCIUM LEVEL 8.7 MG/DL (8.3-10.6); CARBON DIOXIDE LEVEL 27 MMOL/L (20-31); CHLORIDE LEVEL 104 MMOL/L (98-107); CREATININE FOR GFR 0.85 MG/DL (0.55-1.30); GLOMERULAR FILTRATION RATE > 60.0 (>32); GLUCOSE, FASTING 157 MG/DL (74-106); POTASSIUM SERUM 4.2 MMOL/L (3.5-5.1); PTH INTACT 207.8 PG/ML (18.5-88.0); SODIUM LEVEL 138 MMOL/L (136-145)
[2023-12-12 13:07] LABS: TOTAL 25(OH) VITAMIN D 22.2 NG/ML (20.0-100.0)
== END ==
LOC: M SFHCCLAY 08:46
PROVIDERS: ATTEND Family Medicine
DX: D89.2 Hypergammaglobulinemia, unspecified (principal); E87.5 Hyperkalemia; R74.8 Abnormal levels of other serum enzymes; Z79.899 Other long term (current) drug therapy

== ENCOUNTER → 2024-06-04 | Outpatient (REF) | payer MEDICARE, OTHER ==
[2024-06-04 13:05] LABS: HEMATOCRIT 27.4 % (36.0-47.0); HEMOGLOBIN 8.4 g/dl (12.0-15.5); MEAN CORPUSCULAR HEMOGLOBIN 20.6 pg (27.0-33.0); MEAN CORPUSCULAR HGB CONC 30.7 g/dl (32.0-36.5); MEAN CORPUSCULAR VOLUME 67.2 fl (80.0-96.0); PLATELET COUNT, AUTOMATED 471 10^3/uL (150-450); RED BLOOD COUNT 4.08 10^6/uL (4.00-5.40); WHITE BLOOD COUNT 14.1 10^3/uL (4.0-10.0)
[2024-06-04 13:30] LABS: ALBUMIN 3.3 G/DL (3.2-5.2); BILIRUBIN,TOTAL 0.2 MG/DL (0.3-1.2); CALCIUM LEVEL 8.8 MG/DL (8.3-10.6); CHOLESTEROL RISK RATIO 1.87 (<5); CREATININE FOR GFR 0.97 MG/DL (0.55-1.30); GLOMERULAR FILTRATION RATE 58.5 (>32); HDL CHOLESTEROL 87.9 MG/DL (>40); LDL CHOLESTEROL 57.1 MG/DL (<100); NON-HDL-C 77.1 MG/DL; POTASSIUM SERUM 4.2 MMOL/L (3.5-5.1)
[2024-06-04 13:32] LABS: THYROID STIMULATING HORMONE 2.316 uIU/ML (0.55-4.78)
[2024-06-04 13:33] LABS: FREE T4 1.26 NG/DL (0.89-1.76)
[2024-06-04 13:45] LABS: HEMOGLOBIN A1c 5.4 % (4.0-6.0)
== END ==
LOC: M SFHCCLAY 09:32
PROVIDERS: ATTEND Family Medicine
DX: R06.09 Other forms of dyspnea (principal); R53.82 Chronic fatigue, unspecified; R40.0 Somnolence; Z79.899 Other long term (current) drug therapy

== ENCOUNTER → 2024-06-09 | Outpatient (CLI) | payer MEDICARE, OTHER | LOC: M CARPUL 10:10 | PROVIDERS: ATTEND Family Medicine | DX: R06.09 Other forms of dyspnea (principal) ==

== ENCOUNTER → 2024-06-15 | Outpatient (CLI) | payer MEDICARE, OTHER ==
[~2024-06-15] MED LIST changes: +GASTROGRAFIN SOLUTION 30ML As Ordered ONE; +ISOVUE-370 76% 100ML VIAL As Ordered ONE
== END ==
LOC: M RAD 12:53
PROVIDERS: ATTEND Family Medicine
DX: K76.0 Fatty (change of) liver, not elsewhere classified (principal); K57.30 Diverticulosis of large intestine without perforation or abscess without bleeding; K44.9 Diaphragmatic hernia without obstruction or gangrene; R79.89 Other specified abnormal findings of blood chemistry
CPT/HCPCS: 74178; Q9963; Q9967

== ENCOUNTER → 2024-06-25 | Outpatient (REF) | payer MEDICARE, OTHER ==
[~2024-06-25] MED LIST changes: -GASTROGRAFIN SOLUTION 30ML As Ordered ONE; -ISOVUE-370 76% 100ML VIAL As Ordered ONE
[2024-06-25 17:36] LABS: BASO # 0.1 10^3/uL (0.0-0.2); BASO % 0.6 % (0.0-1.0); EOS # 0.4 10^3/uL (0.0-0.5); EOS % 4.3 % (0.0-3.0); HEMATOCRIT 29.3 % (36.0-47.0); HEMOGLOBIN 8.6 g/dl (12.0-15.5); LYMPH # 1.4 10^3/uL (1.5-5.0); MEAN CORPUSCULAR HEMOGLOBIN 20.7 pg (27.0-33.0); MEAN CORPUSCULAR HGB CONC 29.4 g/dl (32.0-36.5); MEAN CORPUSCULAR VOLUME 70.6 fl (80.0-96.0); MONO # 0.9 10^3/uL (0.0-0.8); MONO % 9.2 % (2.0-8.0); NEUTROPHILS % 71.4 % (36.0-66.0); PLATELET COUNT, AUTOMATED 476 10^3/uL (150-450); RED BLOOD COUNT 4.15 10^6/uL (4.00-5.40); WHITE BLOOD COUNT 9.8 10^3/uL (4.0-10.0)
[2024-06-25 17:56] LABS: ALBUMIN 3.5 G/DL (3.2-5.2); ALKALINE PHOSPHATASE 224 U/L (46-116); ALT/SGPT 36 U/L (7.0-40); AST/SGOT 31 U/L (<34); BILIRUBIN,TOTAL 0.2 MG/DL (0.3-1.2); BLOOD UREA NITROGEN 24 MG/DL (9-23); CARBON DIOXIDE LEVEL 28 MMOL/L (20-31); CHLORIDE LEVEL 100 MMOL/L (98-107); CREATININE FOR GFR 0.85 MG/DL (0.55-1.30); GLOMERULAR FILTRATION RATE > 60.0 (>32); GLUCOSE, FASTING 111 MG/DL (74-106); IRON (FE) 83 UG/DL (50-170); PERCENT SATURATION 21.9 % (13.2-45.0); POTASSIUM SERUM 5.2 MMOL/L (3.5-5.1); SODIUM LEVEL 135 MMOL/L (136-145); TOTAL IRON BINDING CAPACITY 379 UG/DL (250-425); TOTAL PROTEIN 6.9 G/DL (5.7-8.2)
== END ==
LOC: M SFHCCLAY 07:05
PROVIDERS: ATTEND Family Medicine
DX: D50.9 Iron deficiency anemia, unspecified (principal)

== ENCOUNTER → 2024-07-12 | Outpatient (REF) | payer MEDICARE, OTHER ==
[2024-07-12 18:07] LABS: HEMATOCRIT 30.2 % (36.0-47.0); MEAN CORPUSCULAR HGB CONC 29.8 g/dl (32.0-36.5); MEAN CORPUSCULAR VOLUME 73.7 fl (80.0-96.0); PLATELET COUNT, AUTOMATED 379 10^3/uL (150-450); WHITE BLOOD COUNT 9.8 10^3/uL (4.0-10.0)
== END ==
LOC: M SFHCCLAY 09:08
PROVIDERS: ATTEND Family Medicine
DX: D50.9 Iron deficiency anemia, unspecified (principal); E87.5 Hyperkalemia

== ENCOUNTER → 2024-08-05 | Outpatient (REF) | payer MEDICARE, OTHER ==
[2024-08-05 11:10] LABS: HEMATOCRIT 30.9 % (36.0-47.0); HEMOGLOBIN 9.8 g/dl (12.0-15.5); MEAN CORPUSCULAR HEMOGLOBIN 23.7 pg (27.0-33.0); MEAN CORPUSCULAR HGB CONC 31.7 g/dl (32.0-36.5); MEAN CORPUSCULAR VOLUME 74.6 fl (80.0-96.0); PLATELET COUNT, AUTOMATED 405 10^3/uL (150-450); RED BLOOD COUNT 4.14 10^6/uL (4.00-5.40); WHITE BLOOD COUNT 9.4 10^3/uL (4.0-10.0)
== END ==
LOC: M SFHCCLAY 08:46
PROVIDERS: ATTEND Family Medicine
DX: D50.9 Iron deficiency anemia, unspecified (principal)

== ENCOUNTER → 2024-08-31 | Outpatient (REF) | payer MEDICARE, OTHER ==
[2024-08-31 17:36] LABS: HEMATOCRIT 32.3 % (36.0-47.0); HEMOGLOBIN 10.3 g/dl (12.0-15.5); MEAN CORPUSCULAR HEMOGLOBIN 25.1 pg (27.0-33.0); MEAN CORPUSCULAR HGB CONC 31.9 g/dl (32.0-36.5); MEAN CORPUSCULAR VOLUME 78.8 fl (80.0-96.0); PLATELET COUNT, AUTOMATED 356 10^3/uL (150-450); WHITE BLOOD COUNT 10.1 10^3/uL (4.0-10.0)
[2024-08-31 17:39] LABS: BLOOD UREA NITROGEN 25 MG/DL (9-23); CALCIUM LEVEL 8.8 MG/DL (8.3-10.6); CARBON DIOXIDE LEVEL 29 MMOL/L (20-31); CHLORIDE LEVEL 97 MMOL/L (98-107); CREATININE FOR GFR 0.85 MG/DL (0.55-1.30); GLOMERULAR FILTRATION RATE > 60.0 (>32); GLUCOSE, FASTING 91 MG/DL (74-106); IRON (FE) 33 UG/DL (50-170); PERCENT SATURATION 10.2 % (13.2-45.0); POTASSIUM SERUM 4.7 MMOL/L (3.5-5.1); SODIUM LEVEL 130 MMOL/L (136-145); TOTAL IRON BINDING CAPACITY 325 UG/DL (250-425)
== END ==
LOC: M SFHCCLAY 08:56
PROVIDERS: ATTEND Family Medicine
DX: D50.9 Iron deficiency anemia, unspecified (principal)

== ENCOUNTER → 2024-10-05 | Outpatient (REF) | payer MEDICARE, OTHER ==
[2024-10-05 11:32] LABS: BASO # 0.1 10^3/uL (0.0-0.2); BASO % 0.7 % (0.0-1.0); EOS # 0.3 10^3/uL (0.0-0.5); EOS % 3.8 % (0.0-3.0); HEMATOCRIT 35.6 % (36.0-47.0); HEMOGLOBIN 11.2 g/dl (12.0-15.5); LYMPH # 1.7 10^3/uL (1.5-5.0); LYMPH % 21.6 % (24.0-44.0); MEAN CORPUSCULAR HEMOGLOBIN 26.8 pg (27.0-33.0); MEAN CORPUSCULAR HGB CONC 31.5 g/dl (32.0-36.5); MEAN CORPUSCULAR VOLUME 85.2 fl (80.0-96.0); MONO # 0.6 10^3/uL (0.0-0.8); MONO % 8.2 % (2.0-8.0); NEUTROPHILS % 65.2 % (36.0-66.0); PLATELET COUNT, AUTOMATED 335 10^3/uL (150-450); RED BLOOD COUNT 4.18 10^6/uL (4.00-5.40); WHITE BLOOD COUNT 7.6 10^3/uL (4.0-10.0)
[2024-10-05 11:34] LABS: PERCENT SATURATION 22.2 % (13.2-45.0)
[2024-10-05 11:35] LABS: ALBUMIN 3.5 G/DL (3.2-5.2); BILIRUBIN,TOTAL 0.2 MG/DL (0.3-1.2); CALCIUM LEVEL 9.2 MG/DL (8.3-10.6); CHOLESTEROL RISK RATIO 2.14 (<5); CREATININE FOR GFR 0.99 MG/DL (0.55-1.30); GLOMERULAR FILTRATION RATE 57.2 (>32); HDL CHOLESTEROL 104.7 MG/DL (>40); LDL CHOLESTEROL 95.3 MG/DL (<100); NON-HDL-C 120.3 MG/DL; POTASSIUM SERUM 4.5 MMOL/L (3.5-5.1); TOTAL PROTEIN 6.9 G/DL (5.7-8.2)
[2024-10-05 11:45] LABS: HEMOGLOBIN A1c 5.8 % (4.0-6.0)
== END ==
LOC: M SFHCCLAY 08:33
PROVIDERS: ATTEND Family Medicine
DX: D50.9 Iron deficiency anemia, unspecified (principal); R06.09 Other forms of dyspnea; R53.82 Chronic fatigue, unspecified; R40.0 Somnolence

== ENCOUNTER → 2024-11-01 | Outpatient (REF) | payer MEDICARE, OTHER ==
[~2024-11-01] MED LIST changes: -POTA10808 PO; +POTA10809 PO
[2024-11-01 12:16] LABS: HEMATOCRIT 35.1 % (36.0-47.0); HEMOGLOBIN 11.2 g/dl (12.0-15.5); MEAN CORPUSCULAR HEMOGLOBIN 28.1 pg (27.0-33.0); MEAN CORPUSCULAR HGB CONC 31.9 g/dl (32.0-36.5); MEAN CORPUSCULAR VOLUME 88.2 fl (80.0-96.0); PLATELET COUNT, AUTOMATED 309 10^3/uL (150-450); RED BLOOD COUNT 3.98 10^6/uL (4.00-5.40); WHITE BLOOD COUNT 7.7 10^3/uL (4.0-10.0)
[2024-11-01 12:18] LABS: BLOOD UREA NITROGEN 23 MG/DL (9-23); CALCIUM LEVEL 8.9 MG/DL (8.3-10.6); CARBON DIOXIDE LEVEL 28 MMOL/L (20-31); CHLORIDE LEVEL 106 MMOL/L (98-107); CREATININE FOR GFR 0.77 MG/DL (0.55-1.30); GLOMERULAR FILTRATION RATE > 60.0 (>32); GLUCOSE, FASTING 164 MG/DL (74-106); IRON (FE) 80 UG/DL (50-170); PERCENT SATURATION 28.8 % (13.2-45.0); SODIUM LEVEL 141 MMOL/L (136-145); TOTAL IRON BINDING CAPACITY 278 UG/DL (250-425)
== END ==
LOC: M SFHCCLAY 08:32
PROVIDERS: ATTEND Family Medicine
DX: D50.9 Iron deficiency anemia, unspecified (principal); K75.81 Nonalcoholic steatohepatitis (NASH)

== ENCOUNTER → 2024-11-03 | Outpatient (CLI) | payer MEDICARE, OTHER ==
[2024-11-03 18:58] LABS: HEPATITIS B SURFACE ANTIGEN NEGATIVE (NEGATIVE)
[2024-11-03 19:19] LABS: HEPATITIS B CORE ANTIBODY IGM NEGATIVE (NEGATIVE); HEPATITIS C VIRUS ABY INDEX < 0.02 INDEX (<0.8)
[2024-11-05 14:07] LABS: ANA SCREEN, IFA NEGATIVE (NEGATIVE)
[2024-11-08 01:06] LABS: ANTI-SMOOTH MUSCLE ANTIBODY < 20 U (<20)
== END ==
LOC: M LRY 08:53
PROVIDERS: ATTEND Internal Medicine Gastroenterology
DX: R74.01 Elevation of levels of liver transaminase levels (principal)

== ENCOUNTER → 2025-01-05 | Outpatient (REF) | payer MEDICARE, OTHER ==
[2025-01-05 17:22] LABS: BASO % 0.4 % (0.0-1.0); EOS # 0.4 10^3/uL (0.0-0.5); EOS % 4.5 % (0.0-3.0); HEMATOCRIT 36.3 % (36.0-47.0); HEMOGLOBIN 11.7 g/dl (12.0-15.5); LYMPH # 1.6 10^3/uL (1.5-5.0); MEAN CORPUSCULAR HEMOGLOBIN 29.7 pg (27.0-33.0); MEAN CORPUSCULAR HGB CONC 32.2 g/dl (32.0-36.5); MEAN CORPUSCULAR VOLUME 92.1 fl (80.0-96.0); MONO # 0.7 10^3/uL (0.0-0.8); MONO % 7.9 % (2.0-8.0); NEUTROPHILS # 6.5 10^3/uL (1.5-8.5); NEUTROPHILS % 69.6 % (36.0-66.0); PLATELET COUNT, AUTOMATED 332 10^3/uL (150-450); RED BLOOD COUNT 3.94 10^6/uL (4.00-5.40); WHITE BLOOD COUNT 9.3 10^3/uL (4.0-10.0)
[2025-01-05 17:25] LABS: ALBUMIN 3.4 G/DL (3.2-5.2); BILIRUBIN,TOTAL 0.2 MG/DL (0.3-1.2); CALCIUM LEVEL 8.9 MG/DL (8.3-10.6); CHOLESTEROL RISK RATIO 2.15 (<5); CREATININE FOR GFR 0.97 MG/DL (0.55-1.30); FERRITIN 83.5 NG/ML (7.3-270.7); GLOMERULAR FILTRATION RATE 58.4 (>32); HDL CHOLESTEROL 99.4 MG/DL (>40); LDL CHOLESTEROL 75.6 MG/DL (<100); NON-HDL-C 114.6 MG/DL; PERCENT SATURATION 29.2 % (13.2-45.0); POTASSIUM SERUM 4.5 MMOL/L (3.5-5.1); THYROID STIMULATING HORMONE 2.373 uIU/ML (0.55-4.78); TOTAL PROTEIN 6.9 G/DL (5.7-8.2)
[2025-01-05 17:26] LABS: FREE T4 1.13 NG/DL (0.89-1.76)
[2025-01-05 17:56] LABS: HEMOGLOBIN A1c 5.7 % (4.0-6.0)
== END ==
LOC: M SFHCCLAY 14:41
PROVIDERS: ATTEND Nurse Practitioner Family
DX: D50.9 Iron deficiency anemia, unspecified (principal); K75.81 Nonalcoholic steatohepatitis (NASH); E11.9 Type 2 diabetes mellitus without complications; I10 Essential (primary) hypertension; I35.8 Other nonrheumatic aortic valve disorders

== ENCOUNTER → 2025-01-14 | Outpatient (CLI) | payer MEDICARE, OTHER ==
[~2025-01-14] MED LIST changes: +ASCO500C3 PO; +NIFE15CA PO
== END ==
LOC: M WHC 13:24
PROVIDERS: ATTEND Nurse Practitioner Family
DX: Z12.31 Encounter for screening mammogram for malignant neoplasm of breast (principal); Z78.0 Asymptomatic menopausal state; M81.0 Age-related osteoporosis without current pathological fracture; M85.88 Other specified disorders of bone density and structure, other site

== ENCOUNTER 2025-02-01 10:29 | Day surgery (SDC) | payer MEDICARE, OTHER ==
[~2025-02-01] VITALS: Ht 152.4 cm; Wt 74.3 kg
[~2025-02-01 10:29] MED LIST changes: +LIDOCAINE 2% 100MG/5ML SDV (FOR ANES.) As Ordered ONE; +propofoL 200 MG/20 ML VIAL As Ordered ONE
[2025-02-01 12:42] VITALS: BP 166/74; O2SAT 94
== END 2025-02-01 12:44 | disposition home or self-care (01) ==
LOC: M OPP 10:29
PROVIDERS: ATTEND Internal Medicine Gastroenterology
DX: D50.9 Iron deficiency anemia, unspecified (principal); Q43.8 Other specified congenital malformations of intestine; K64.8 Other hemorrhoids; K44.9 Diaphragmatic hernia without obstruction or gangrene; K25.9 Gastric ulcer, unspecified as acute or chronic, without hemorrhage or perforation; I10 Essential (primary) hypertension; E78.00 Pure hypercholesterolemia, unspecified; E11.9 Type 2 diabetes mellitus without complications; M19.90 Unspecified osteoarthritis, unspecified site; R25.1 Tremor, unspecified; Z87.891 Personal history of nicotine dependence; Z79.84 Long term (current) use of oral hypoglycemic drugs; Z79.899 Other long term (current) drug therapy; Z80.3 Family history of malignant neoplasm of breast

== ENCOUNTER → 2025-02-16 | Outpatient (REF) | payer MEDICARE, OTHER ==
[~2025-02-16] MED LIST changes: -LIDOCAINE 2% 100MG/5ML SDV (FOR ANES.) As Ordered ONE; -propofoL 200 MG/20 ML VIAL As Ordered ONE
[2025-02-16 17:03] LABS: BASO % 0.4 % (0.0-1.0); EOS # 0.1 10^3/uL (0.0-0.5); EOS % 0.7 % (0.0-3.0); HEMATOCRIT 38.1 % (36.0-47.0); HEMOGLOBIN 12.5 g/dl (12.0-15.5); LYMPH # 0.5 10^3/uL (1.5-5.0); LYMPH % 5.4 % (24.0-44.0); MEAN CORPUSCULAR HEMOGLOBIN 29.7 pg (27.0-33.0); MEAN CORPUSCULAR HGB CONC 32.8 g/dl (32.0-36.5); MEAN CORPUSCULAR VOLUME 90.5 fl (80.0-96.0); MONO # 1.6 10^3/uL (0.0-0.8); MONO % 16.4 % (2.0-8.0); NEUTROPHILS # 7.6 10^3/uL (1.5-8.5); NEUTROPHILS % 76.3 % (36.0-66.0); PLATELET COUNT, AUTOMATED 313 10^3/uL (150-450); RED BLOOD COUNT 4.21 10^6/uL (4.00-5.40); WHITE BLOOD COUNT 9.9 10^3/uL (4.0-10.0)
[2025-02-16 17:08] LABS: ALBUMIN 3.6 G/DL (3.2-5.2); BILIRUBIN,TOTAL 0.2 MG/DL (0.3-1.2); CALCIUM LEVEL 8.8 MG/DL (8.3-10.6); CREATININE FOR GFR 1.1 MG/DL (0.55-1.30); GLOMERULAR FILTRATION RATE 50.5 (>32); MAGNESIUM LEVEL 2.1 MG/DL (1.8-2.4); TOTAL PROTEIN 7.5 G/DL (5.7-8.2)
== END ==
LOC: M SFHCCLAY 09:55
PROVIDERS: ATTEND Physician Assistant
DX: R19.7 Diarrhea, unspecified (principal)

== ENCOUNTER → 2025-02-17 | Outpatient (REF) | payer MEDICARE, OTHER | LOC: M SFHCCLAY 17:26 | PROVIDERS: ATTEND Physician Assistant | DX: A08.0 Rotaviral enteritis (principal) ==

== ENCOUNTER → 2025-07-13 | Outpatient (CLI) | payer MEDICARE, OTHER | LOC: M PLAIMG 10:23 | PROVIDERS: ATTEND Nurse Practitioner Family | DX: R01.1 Cardiac murmur, unspecified (principal) ==

== ENCOUNTER → 2025-07-15 | Outpatient (REF) | payer MEDICARE, OTHER | LOC: M SFHCCLAY 16:52 | PROVIDERS: ATTEND Physician Assistant | DX: R09.81 Nasal congestion (principal) ==

== ENCOUNTER → 2025-07-27 | Outpatient (REF) | payer MEDICARE, OTHER ==
[2025-07-27 12:41] LABS: ALT/SGPT 65.0 U/L (7.0-40); AST/SGOT 54.0 U/L (<34); C REACTIVE PROTEIN QUANTITATIV 4.79 MG/DL (<1.0); CALCIUM LEVEL 9.1 MG/DL (8.3-10.6); CARBON DIOXIDE LEVEL 25.0 MMOL/L (20-31); CHLORIDE LEVEL 106.0 MMOL/L (98-107); CREATININE FOR GFR 0.77 MG/DL (0.55-1.30); GLOMERULAR FILTRATION RATE 76.5 (>32); POTASSIUM SERUM 4.5 MMOL/L (3.5-5.1); SODIUM LEVEL 144.0 MMOL/L (136-145)
[2025-07-27 12:48] LABS: BASO # 0.0 10^3/uL (0.0-0.2); BASO % 0.2 % (0.0-1.0); EOS # 0.0 10^3/uL (0.0-0.5); EOS % 0.2 % (0.0-3.0); LYMPH # 1.0 10^3/uL (1.5-5.0); LYMPH % 8.1 % (24.0-44.0); MONO # 0.5 10^3/uL (0.0-0.8); MONO % 4.3 % (2.0-8.0); NEUTROPHILS # 10.1 10^3/uL (1.5-8.5); NEUTROPHILS % 86.3 % (36.0-66.0); PLATELET COUNT, AUTOMATED 370 10^3/uL (150-450)
[2025-07-27 12:53] LABS: ERYTHROCYTE SEDIMENTATION RATE 76 mm/hr (0-30)
[2025-07-27 14:55] LABS: RHEUMATOID FACTOR QUANT 8.6 IU/ML (<14)
[2025-07-30 14:33] LABS: LYME TOTAL ANTIBODY CIA <= 0.90 Index (<=0.90)
== END ==
LOC: M SFHCCLAY 08:06
PROVIDERS: ATTEND Physician Assistant
DX: M79.89 Other specified soft tissue disorders (principal)

== ENCOUNTER → 2025-10-26 | Outpatient (REF) | payer MEDICARE, OTHER ==
[2025-10-26 17:27] LABS: BASO # 0.1 10^3/uL (0.0-0.2); BASO % 0.5 % (0.0-1.0); EOS # 0.4 10^3/uL (0.0-0.5); EOS % 4.1 % (0.0-3.0); LYMPH # 1.3 10^3/uL (1.5-5.0); LYMPH % 12.8 % (24.0-44.0); MONO # 0.9 10^3/uL (0.0-0.8); MONO % 8.6 % (2.0-8.0); NEUTROPHILS # 7.7 10^3/uL (1.5-8.5); NEUTROPHILS % 73.5 % (36.0-66.0); PLATELET COUNT, AUTOMATED 336 10^3/uL (150-450)
[2025-10-26 18:03] LABS: ESTIMATED AVERAGE GLUCOSE 126.0 MG/DL (60-110)
[2025-10-26 18:04] LABS: ALT/SGPT 38.0 U/L (7.0-40); AST/SGOT 45.0 U/L (<34); CALCIUM LEVEL 8.2 MG/DL (8.3-10.6); CARBON DIOXIDE LEVEL 28.0 MMOL/L (20-31); CHLORIDE LEVEL 102.0 MMOL/L (98-107); CHOLESTEROL LEVEL 166.0 MG/DL (<200); CHOLESTEROL RISK RATIO 2.2 (<5); CREATININE FOR GFR 0.97 MG/DL (0.55-1.30); GLOMERULAR FILTRATION RATE 57.6 (>32); IRON (FE) 64.0 UG/DL (50-170); LDL CHOLESTEROL 61.2 MG/DL (<100); NON-HDL-C 90.8 MG/DL; PERCENT SATURATION 24.3 % (13.2-45.0); POTASSIUM SERUM 4.6 MMOL/L (3.5-5.1); SODIUM LEVEL 141.0 MMOL/L (136-145); TRIGLYCERIDES LEVEL 148.0 MG/DL (<150)
== END ==
LOC: M SFHCCLAY 14:11
PROVIDERS: ATTEND Nurse Practitioner Family
DX: D50.9 Iron deficiency anemia, unspecified (principal); K75.81 Nonalcoholic steatohepatitis (NASH); E11.9 Type 2 diabetes mellitus without complications; I10 Essential (primary) hypertension; I35.8 Other nonrheumatic aortic valve disorders; R01.1 Cardiac murmur, unspecified

== ENCOUNTER → 2025-10-26 | Outpatient (CLI) | payer MEDICARE, OTHER | LOC: M CLY 14:34 | PROVIDERS: ATTEND Nurse Practitioner Family | DX: M17.11 Unilateral primary osteoarthritis, right knee (principal); M25.561 Pain in right knee ==